=== PATIENT | male | born 1975 | race Caucasian/White ===

== ENCOUNTER → 2019-04-25 14:26 | Outpatient (BNVA) | payer MEDICAID, SELFPAY | PROVIDERS: Family Provider Nurse Practitioner Family; PCP Nurse Practitioner Family; Visit Provider Anesthesiology | DX: M54.5 Low back pain (principal); M25.50 Pain in unspecified joint | CPT/HCPCS: 99213; 99214 ==

== ENCOUNTER → 2019-06-17 14:40 | Outpatient (BNVA) | payer MEDICAID, SELFPAY | PROVIDERS: Family Provider Nurse Practitioner Family; PCP Nurse Practitioner Family; Visit Provider Podiatrist Foot & Ankle Surgery | DX: M79.671 Pain in right foot (principal) | CPT/HCPCS: 73620 ==

== ENCOUNTER 2019-06-18 14:39 | Outpatient (CLI) | payer MEDICAID, SELFPAY | END 2019-06-18 14:40 | disposition home or self-care (01) | LOC: RADWPI 06-20 10:10 | PROVIDERS: Family Provider Nurse Practitioner Family; PCP Nurse Practitioner Family; Visit Provider Anesthesiology | DX: G89.29 Other chronic pain (principal); M48.061 Spinal stenosis, lumbar region without neurogenic claudication; M54.16 Radiculopathy, lumbar region; M48.00 Spinal stenosis, site unspecified; M54.6 Pain in thoracic spine; M89.29 Other disorders of bone development and growth, multiple sites | CPT/HCPCS: 99213; 99214 ==

== ENCOUNTER 2019-07-03 14:36 | Outpatient (CLI) | payer MEDICAID, SELFPAY ==
--- NOTE | 2019-07-03 14:38 | MR_ITS ---
WS: [id number] MRI THORACIC SPINE noncontrast HISTORY: SPINE PAIN COMPARISON: 12/14/2018 TECHNIQUE: Multiplanar sequences are performed in sagittal and axial planes. Normal posterior alignment. Mild disc space narrowing and desiccation at several levels throughout th e thoracic spine. No cord enlargement or atrophy. Conus tapers normally ends at L1. Minimal reactive marrow edema along the inferior endplate of T12. No fractures. T1-2: Mild LEFT foraminal narrowing. T2-3: Mild LEFT foraminal narrowing. T3-4: LEFT foraminal disc protrusion similar to the prior study. Mild narrowing of the LEFT foramen. Mild mass effect upon the LEFT lateral thecal sac. No cord contact. T4-5: Normal. T5-6: Mild facet arthritis. Very slight disc bulging. No cord contact or stenosis. T6-7: Mild facet arthritis. Mild bilateral foraminal narrowing. T7-8: Mild facet arthritis. Mild foraminal narrowing. T8-9: Mild facet joint arthritis, RIGHT greater than LEFT. Mild RIGHT foraminal stenosis. Similar to the prior study. T9-10: Facet joint arthritis with mild bilateral foraminal narrowing, RIGHT greater than LEFT. T10-11: Asymmetric disc bulging with marked facet joint arthropathy. Ligamentum flavum hypertrophy a nd facet arthropathy encroaching upon the posterior lateral thecal sac. Mild central with moderate bi lateral foraminal stenosis. Mild progression of stenosis since the prior study. T11-12: Mild bilateral foraminal narrowing. Osteophyte from the LEFT facet encroaches into the LEFT foramen. Moderate stenosis LEFT foramen and mild on the RIGHT. Paraspinal soft tissues are normal. MR/MR thoracic spin wo con* [id number] IMPRESSION: 1. No severe central canal stenosis. 2. Mild progression of degenerative disc and facet disease at T10-11 since the prior study. Moderate bilateral foraminal stenosis, LEFT greater than RIGHT. 3. Moderate LEFT foraminal stenosis at T11-12 due to mild progression of facet arthritis. Additional LEFT foraminal osteophyte. 4. Additional multilevel areas of mild to moderate foraminal stenosis as above .
--- NOTE | 2019-07-03 14:39 | MR_ITS ---
WS: [id number] MRI LUMBAR SPINE NONCONTRAST HISTORY: PAIN COMPARISON: 09/13/2018 TECHNIQUE: Sagittal and axial multisequence imaging is submitted. 2 mm retrolisthesis of L3. Mild disc desiccation at L2-3 and L3-4. No fractures or marrow edema. Conus terminates normally at mid L1. L1-L2: Normal. L2-L3: Diffuse annular disc bulging with a broad annular fissure centrally. Mild effacement of the ve ntral thecal sac with mild subarticular recess and foraminal stenosis. Mild progression of stenosis s freedom the prior study. L3-L4: Diffuse annular disc bulging with mild ligamentum flavum hypertrophy. Small amount of fluid in the facet joints. Mild central, subarticular recess and foraminal stenosis. L4-L5: Diffuse annular disc bulging with mild ligamentum flavum hypertrophy. Shallow central disc pro trusion. Mild central, subarticular recess and foraminal stenosis. L5-S1: Broad-based annular fissure centrally. No significant stenosis. Paraspinal soft tissues are negative. MR/MR lumbar spine wo con* [id number] IMPRESSION: 1. Mild central, subarticular recess and foraminal stenosis at L2-3, L3-4 and L4-5. Minimal progression since 09/13/2018. Suspect component of congenitally sm all thecal sac and short pedicles. 2. Annular fissure centrally at L2-3 and L5-S1.
== END 2019-07-03 14:37 | disposition home or self-care (01) ==
LOC: RADWPI 14:37
PROVIDERS: Family Provider Nurse Practitioner Family; PCP Nurse Practitioner Family; Visit Provider Anesthesiology
DX: G89.29 Other chronic pain (principal); M48.061 Spinal stenosis, lumbar region without neurogenic claudication; Q05.7 Lumbar spina bifida without hydrocephalus; M51.34 Other intervertebral disc degeneration, thoracic region; M48.04 Spinal stenosis, thoracic region; M25.78 Osteophyte, vertebrae
CPT/HCPCS: 72146; 72148

== ENCOUNTER 2019-08-23 14:36 | Outpatient (CLI) | payer MEDICAID, SELFPAY ==
--- NOTE | 2019-08-23 14:44 | XR_ITS ---
WS: [id number] CERVICAL SPINE FLEXION EXTENSION TECHNIQUE: 3 views of the cervical spine: lateral neutral, flexion and extension views. CLINICAL INFORMATION: cervical pain COMPARISON: August 15, 2018 FINDINGS: Straightening of the normal cervical lordosis. Normal alignment on the neutral view. Mild spondylitic changes cervical spine. Disc space narrowing worse at C5-C7 with anterior hypertrophic spurring. Nor mal C1-2 articulation. Posterior elements are normal. No other significant findings. XR/XR cervical spine fl/ex [id number] IMPRESSION: No instability on flexion-extension
--- NOTE | 2019-08-23 14:44 | MR_ITS ---
WS: [id number] MRI CERVICAL SPINE NONCONTRAST TECHNIQUE: Sagittal T1, T2 and STIR imaging. Axial T2, gradient, and fiesta imaging. CLINICAL INFORMATION: cervical pain COMPARISON: MRI August 15, 2018 FINDINGS: Straightening of the normal cervical lordosis. Mild disc bulging worse at C5-C6. Cord signal is shwetha l. C2-C3: Normal. C3-C4: Mild disc bulging with osteophytic ridging. Tiny right pericentral protrusion. Mild facet arth ropathy. Mild left greater than right foraminal narrowing. C4-C5: Mild disc bulging and osteophytic ridging. Mild central canal stenosis. Mild left greater than right bony foraminal narrowing. Mild facet arthropathy. C5-C6: Disc osteophyte complex with endplate ridging. Mild to moderate central canal stenosis and sli ght indentation on cervical cord. Moderate bilateral bony foraminal narrowing. Mild facet arthropathy . C6-C7: Mild disc bulging and osteophytic ridging. Mild central canal stenosis. Moderate to severe lef t and moderate right bony foraminal narrowing. Mild facet arthropathy. Mild central canal stenosis. C7-T1: Bilobed central disc protrusion with mild central canal stenosis. Mild bilateral bony foramina l narrowing. Visualized brain stem structures: Normal. Prevertebral soft tissues: Normal. MR/MR cervical spin wo con* [id number] IMPRESSION: 1. Straightening of the normal cervical lordosis. Cord signal is normal. 2. Mild to moderate central canal stenosis C4-C5, C5-C6, and C6-C7 worse at C5 -C6 where it is moderate. 3. Multilevel bony foraminal narrowing worse at bilateral C5-C6 and bilateral C6-7 worse in the left 4. No significant interval changes since August 15, 2018.
== END 2019-08-23 14:37 | disposition home or self-care (01) ==
LOC: RADWPI 14:39
PROVIDERS: Family Provider Nurse Practitioner Family; PCP Nurse Practitioner Family; Visit Provider Specialist
DX: M54.2 Cervicalgia (principal); M48.02 Spinal stenosis, cervical region
CPT/HCPCS: 72040; 72141

== ENCOUNTER → 2019-09-05 14:30 | Outpatient (BNVA) | payer MEDICAID, SELFPAY | PROVIDERS: Family Provider Nurse Practitioner Family; PCP Nurse Practitioner Family; Visit Provider Anesthesiology | DX: G89.29 Other chronic pain (principal); M48.061 Spinal stenosis, lumbar region without neurogenic claudication; M54.16 Radiculopathy, lumbar region; M54.6 Pain in thoracic spine; M54.9 Dorsalgia, unspecified; M50.020 Cervical disc disorder with myelopathy, mid-cervical region, unspecified level; M48.00 Spinal stenosis, site unspecified; Z79.891 Long term (current) use of opiate analgesic | CPT/HCPCS: 99214 ==

== ENCOUNTER → 2019-09-23 14:52 | Outpatient (BNVA) | payer MEDICAID, SELFPAY | PROVIDERS: Family Provider Nurse Practitioner Family; PCP Nurse Practitioner Family; Referring Provider Orthopaedic Surgery; Visit Provider Specialist | DX: M25.562 Pain in left knee (principal); M25.561 Pain in right knee; G89.29 Other chronic pain | CPT/HCPCS: 73560; 73565 ==

== ENCOUNTER 2019-09-24 14:53 | Emergency (ER) | payer MEDICAID, SELFPAY ==
[2019-09-24 15:12] VITALS: BP 137/76; PULSE 66; RESP 14; TEMP 36.6; O2SAT 99; BMI 21.3
--- NOTE | 2019-09-24 16:00 | ED_ITS ---
Documented by User: HERACLIO Beck 09/25/19 17:29 HPI - Back Pain/Injury General: Chief Complaint: Back Pain/Injury Stated Complaint: back pain Time Seen by Provider: 09/24/19 16:00 History of Present Illness: HPI Narrative: Patient is a 44-year-old male comes the ED with acute on chronic lower back pain. 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 He is having pain radiating down his right lower extremity. Patient says about 4 to 5 days ago he had an acute attack of lower back pain and he was unable to move much for about 3 days. He has been taking oxycodone to manage pain. He talked to Dr. Pickett and he told him to come to the ED to get an MRI today. Patient denies any numbness or tingling down lower extremities and has no bladder or bowel incontinence or pelvic anesthesia. Associated symptoms: Deny abdominal pain, chills, dysuria, fatigue, fever(s), hematuria, nausea or vomiting Review of Systems Const: Denies: fever(s), chills or fatigue Eyes: Denies: change in vision or eye discomfort ENMT: Denies: throat pain, odynophagia, nasal discharge or nasal congestion Card: Denies: chest pain, palpitations, edema, swelling of feet/ankles, dyspnea on exertion or orthopnea Resp: Denies: dyspnea, productive cough or non-productive cough GI: Denies: abdominal pain, nausea, vomiting, diarrhea, constipation or hematochezia : Denies: flank pain, difficulty urinating, dysuria or hematuria Musc: Reports: back pain; Denies: neck pain or extremity swelling Skin/Breast: Denies: rash or new lesions Neuro: Denies: headache(s), numbness in extremities or weakness in extremities PFS ED PFSH: Medical History Acquired bilateral hammer toes Acute midline thoracic back pain ADHD Arthritis of right acromioclavicular joint Atrial premature beats Beat, premature ventricular Blind right eye Bunion of right foot Cervical disc disorder with myelopathy of mid-cervical region Cervical disc disorder with radiculopathy of mid-cervical region Cervical radicular pain Cervical spinal stenosis Chondromalacia Chondromalacia of patella Chronic fatigue, unspecified Chronic GERD Chronic pain associated with significant psychosocial dysfunction Chronic thoracic back pain Common migraine with intractable migraine, so stated Diplopia Dorsalgia, unspecified Encounter for long-term use of opiate analgesic Exostosis of foot Fibromyalgia, primary Generalized anxiety disorder Hyperlipidemia, unspecified Impingement syndrome of right shoulder Incomplete rotator cuff tear Insomnia, unspecified Male erectile dysfunction, unspecified 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 Peroneal tendinitis of multiple sites Spinal stenosis of lumbar region with radiculopathy Spinal stenosis, site unspecified Surgical History History of nasal surgery Family History Father Cancer Mother Cancer Lung disease Social History Smoking and tobacco status: never smoked Second hand smoke exposure: No Alcohol intake: never Current occupational status: employed 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 History of recent travel: No Physical Exam Const: COMMON NORMALS: no acute distress, patient oriented x3 and alert GENERAL APPEARANCE: cooperative HENMT: COMMON NORMALS: normocephalic HEAD & SCALP: normocephalic MOUTH: Normal oral and palatal mucosa present THROAT: posterior oropharynx normal and uvula midline Eye: COMMON NORMALS: Equal, round and reactive pupils present PUPIL: Yes Equal, round and reactive pupils present Neck/C-Spine: COMMON NORMALS: supple GENERAL: Yes normal visual inspection Resp: COMMON NORMALS: normal respiratory effort, No retractions, No use of accessory muscles and clear to auscultation bilaterally AUSCULTATION: clear to auscultation bilaterally Cardio: COMMON NORMALS: regular rate, regular rhythm, S1 normal heart sound present, S2 normal heart sound present, No gallops present (Cardio), No clicks present (Cardio), No murmurs present (Cardio) and Peripheral pulses 2+ throughout RATE: regular rate RHYTHM: regular rhythm HEART SOUNDS: S1 normal heart sound present and S2 normal heart sound present PERIPHERAL PULSES: Peripheral pulses 2+ throughout GI: COMMON NORMALS: Normal to inspection, nondistended, normoactive bowel sounds present, Soft to palpation, non-tender and no masses PALPATION: Yes Soft to palpation : COMMON NORMALS: Yes no CVA tenderness BLADDER/KIDNEY EXAM: Yes no CVA tenderness Back/Pelvis: COMMON NORMALS: no CVA tenderness LUMBAR SPINE/LOWER BACK: Yes ROM limited, Yes pain with ROM, Yes lumbar spinal tenderness, Yes paraspinal muscle tenderness and Yes straight leg raise positive right Extremity: COMMON NORMALS: normal to inspection and no pedal edema Neuro: COMMON NORMALS: patient oriented x3, moves all extremities, no focal motor deficits and no sensory deficits noted SENSORIUM/ORIENTATION: Yes alert SENSORY EXAM: Yes extremities (intact) Skin: COMMON NORMALS: no rashes or lesions noted GENERAL SKIN EXAM: no rashes or lesions noted and dry skin Course Vital Signs: Vital signs: Vital Signs Temperature 97.8 F 09/24/19 15:12 Pulse Rate 76 09/24/19 20:22 Respiratory Rate 14 09/24/19 20:22 Blood Pressure 111/68 09/24/19 20:22 Pulse Oximetry 96 09/24/19 20:22 Discharge Plan Discharge Patient Disposition: Home, Self-Care Clinical Impression: Back pain with radiation Condition: Stable Prescriptions: New prednisone 20 mg tablet 20 mg PO DAILY 11 Days Qty: 11 RF: 0 No Action Motegrity 2 mg tablet 2 mg PO BID RF: 0 diazepam [Valium] 10 mg tablet 10 mg PO BEDTIME PRN (Reason: unknown) RF: 0 cyclobenzaprine 10 mg PO TID PRN (Reason: unknown) RF: 0 oxycodone 10 mg tablet 10 mg PO TID PRN (Reason: pain) 30 Days Qty: 90 RF: 0 Medrol (Bernardino) 4 mg Tablets,Dose Pack See Rx Instructions .ROUTE .COMPLEX RF: 0 Food Based Organic Multivit See Rx Instructions .ROUTE .COMPLEX RF: 0 trazodone 50 mg tablet 50 mg PO BEDTIME RF: 0 ibuprofen 800 mg Tablet 800 mg PO Q8H PRN (Reason: Pain) RF: 0 lidocaine-prilocaine 2.5-2.5 % cream See Rx Instructions .ROUTE .COMPLEX RF: 0 hydrocortisone 2.5 % cream 1 applic TOPICAL BID PRN (Reason: UNKNOWN) RF: 0 fish oil-dha-epa 1,200-144-216 mg Capsule See Rx Instructions .ROUTE .COMPLEX RF: 0 Lotemax 0.5 % drops,gel 1 drp ophthalmic (eye) BEDTIME PRN (Reason: UNKNOWN) RF: 0 Dim Tabs 200 mg PO DAILY RF: 0 Eye Vitamins 3 tab PO DAILY RF: 0 Vitamin K With D3 1 tab PO DAILY RF: 0 Referrals: Kayla Quan FNP [Primary Care Provider] - Discharge Diet: Advance as tolerated Discharge Activity: Increase activity as tolerated Patient Instructions: Lumbar Radiculopathy (ED) Activity Restrictions/Additional Instructions: Follow-up with medical provider as directed. Take medications as prescribed. Return to the ER or your medical provider if condition worsens. Please read and understand discharge instructions. If any questions ask please. Discharge Date/Time: 09/24/19 20:24 Coding Level of Care Code ED Software Support Representative for Chg Fwd Exam Comprehensive Documented by User: KIRTI Swan 09/24/19 21:00 HPI - Back Pain/Injury General: Chief Complaint: Back Pain/Injury Stated Complaint: back pain Time Seen by Provider: 09/24/19 16:00 PFSH ED PFSH: Medical History Acquired bilateral hammer toes Acute midline thoracic back pain ADHD Arthritis of right acromioclavicular joint Atrial premature beats Beat, premature ventricular Blind right eye Bunion of right foot Cervical disc disorder with myelopathy of mid-cervical region Cervical disc disorder with radiculopathy of mid-cervical region Cervical radicular pain Cervical spinal stenosis Chondromalacia Chondromalacia of patella Chronic fatigue, unspecified Chronic GERD Chronic pain associated with significant psychosocial dysfunction Chronic thoracic back pain Common migraine with intractable migraine, so stated Diplopia Dorsalgia, unspecified Encounter for long-term use of opiate analgesic Exostosis of foot Fibromyalgia, primary Generalized anxiety disorder Hyperlipidemia, unspecified Impingement syndrome of right shoulder Incomplete rotator cuff tear Insomnia, unspecified Male erectile dysfunction, unspecified 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 Peroneal tendinitis of multiple sites Spinal stenosis of lumbar region with radiculopathy Spinal stenosis, site unspecified Surgical History History of nasal surgery Family History Father Cancer Mother Cancer Lung disease Social History Smoking and tobacco status: never smoked Second hand smoke exposure: No Alcohol intake: never Current occupational status: employed 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 Pickett read him the MRI report he has not we have the patient follow-up with him contact his office in the morning. Discussed case and MRI results with patient and his Discharge Plan Discharge Patient Disposition: Home, Self-Care Clinical Impression: Back pain with radiation Condition: Stable Prescriptions: New prednisone 20 mg tablet 20 mg PO DAILY 11 Days Qty: 11 RF: 0 No Action Motegrity 2 mg tablet 2 mg PO BID RF: 0 diazepam [Valium] 10 mg tablet 10 mg PO BEDTIME PRN (Reason: unknown) RF: 0 cyclobenzaprine 10 mg PO TID PRN (Reason: unknown) RF: 0 oxycodone 10 mg tablet 10 mg PO TID PRN (Reason: pain) 30 Days Qty: 90 RF: 0 Medrol (Bernardino) 4 mg Tablets,Dose Pack See Rx Instructions .ROUTE .COMPLEX RF: 0 Food Based Organic Multivit See Rx Instructions .ROUTE .COMPLEX RF: 0 trazodone 50 mg tablet 50 mg PO BEDTIME RF: 0 ibuprofen 800 mg Tablet 800 mg PO Q8H PRN (Reason: Pain) RF: 0 lidocaine-prilocaine 2.5-2.5 % cream See Rx Instructions .ROUTE .COMPLEX RF: 0 hydrocortisone 2.5 % cream 1 applic TOPICAL BID PRN (Reason: UNKNOWN) RF: 0 fish oil-dha-epa 1,200-144-216 mg Capsule See Rx Instructions .ROUTE .COMPLEX RF: 0 Lotemax 0.5 % drops,gel 1 drp ophthalmic (eye) BEDTIME PRN (Reason: UNKNOWN) RF: 0 Dim Tabs 200 mg PO DAILY RF: 0 Eye Vitamins 3 tab PO DAILY RF: 0 Vitamin K With D3 1 tab PO DAILY RF: 0 Referrals: Kayla Quan FNP [Primary Care Provider] - Discharge Diet: Advance as tolerated Discharge Activity: Increase activity as tolerated Patient Instructions: Lumbar Radiculopathy (ED) Activity Restrictions/Additional Instructions: Follow-up with medical provider as directed. Take medications as prescribed. Return to the ER or your medical provider if condition worsens. Please read and understand discharge instructions. If any questions ask please. Discharge Date/Time: 09/24/19 20:24 Coding Level of Care Code ED Software Support Representative for Kelsey Fwd Exam Comprehensive
--- NOTE | 2019-09-24 16:37 | MRR_ITS ---
PROCEDURE INFORMATION: Exam: MR Lumbar Spine Without Contrast. Exam date and time: 09/24/2019 6:00 PM Age: 44 years old Clinical indication: Low back pain; Additional info: Spinal stenosis, back pain TECHNIQUE: Imaging protocol: Multiplanar magnetic resonance images of the lumbar spine without intravenous contrast. COMPARISON: MR lumbar spine wo con* [id number] 07/03/2019 2:54 PM FINDINGS: Vertebrae: Vertebral body height is maintained. No subluxation. Schmorl's nodes at multiple levels in the spine. Small marginal osteophytes at multiple levels in the spine. No evidence for ligamentous injury. No bone marrow edema. The sagittal streaming media specialist image shows small posterior disc bulges at C2-C3 through C5-C6, C7-T1, T2-3 through T5-6, and T9-10. Small marginal osteophytes are also seen at multiple levels in the cervical spine. Increased T2 signal in the posterior midline L2-L3 disc is less apparent compared with the previous study. Stable increased T2 signal in the posterior midline annulus fibrosus at the L5-S1 disc. Findings suggest annular fissures. Spinal epidural space: No evidence for an epidural hematoma. Spinal cord: No signal abnormality in the visualized spinal cord, conus medullaris, or cauda equina. Spinal cord terminates at the L1 vertebral body level. T10-T11: The sagittal image shows a small posterior disc bulge and mild bilateral facet hypertrophy. Findings are stable. T11-T12: The sagittal image shows a posterior disc bulge and mild bilateral facet hypertrophy. Findings are stable. T12-L1: Sagittal image shows mild bilateral facet hypertrophy. Findings are stable. L1-L2: Mild bilateral facet hypertrophy. Moderate ligamentum flavum thickening. Findings are stable. L2-L3: Moderate broadbased posterior disc bulge. Mild bilateral facet hypertrophy. Moderate ligamentum flavum thickening. [id number] spinal canal stenosis. Mild bilateral foraminal stenosis. Findings are stable. L3-L4: Small broadbased posterior disc bulge. Mild bilateral facet hypertrophy. Moderate ligamentum flavum thickening. Mild spinal canal stenosis. Mild bilateral foraminal stenosis. Findings are stable. L4-L5: Mild bilateral facet hypertrophy. Mild ligamentum flavum thickening. Mild bilateral foraminal stenosis. Findings are stable. L5-S1: Small focal central disc herniation. Mild bilateral facet hypertrophy. Mild ligamentum flavum thickening. Findings are stable. Soft tissues: No paravertebral soft tissue abnormality. MR/MR lumbar spine wo con* [id number] IMPRESSION: 1. Stable multilevel degenerative disc disease and degenerative joint disease as described in the report. Stable mild to moderate spinal canal stenosis at L2-L3 and mild spinal canal stenosis at L3-L4. Stable multilevel foraminal stenosis in the lumbar spine. 2. Findings suggesting annular fissures at the posterior midline L2-L3 and L5-S1 discs. Findings are less apparent and L2-L3 but are stable at L5-S1. 3. Incidental/nonacute findings are listed in the report.
[2019-09-24 17:40] VITALS: RESP 16
[2019-09-24] MEDS: oxyCODONE-APAP 10-325 mg Tablet 1 TAB PO (17:40)
--- NOTE | 2019-09-24 18:18 | PC.NURSE ---
patient taken to MRI via em[facility]
--- NOTE | 2019-09-24 18:49 | PC.NURSE ---
patient returned from lmri, patiesnt tolerated well
[2019-09-24 19:05] VITALS: BP 111/68; PULSE 76; RESP 18; O2SAT 96
--- NOTE | 2019-09-24 19:12 | PC.NURSE ---
during pt rounds, pt requesting to hold off on pain meds, requesting something to eat. Per GOLF PLAYER ASSISTANT, hold off on full meal, ok for snack until rad report read. Jaylene tellom crackers provided to pt
[2019-09-24] MEDS: predniSONE 20 mg Tablet 60 MG PO (20:04)
[2019-09-24 20:22] VITALS: BP 111/68; PULSE 76; RESP 14; O2SAT 96
== END 2019-09-24 20:24 | disposition home or self-care (01) ==
PROVIDERS: Emergency Provider Nurse Practitioner Family; PCP Nurse Practitioner Family
DX: M54.9 Dorsalgia, unspecified (principal); E78.5 Hyperlipidemia, unspecified
CPT/HCPCS: 12345; 72148; 99282; 99283; J7512

== ENCOUNTER → 2019-09-25 13:07 | Outpatient (BNVA) | payer MEDICAID, SELFPAY | PROVIDERS: Family Provider Nurse Practitioner Family; PCP Nurse Practitioner Family; Visit Provider Anesthesiology | DX: G89.29 Other chronic pain (principal); M54.41 Lumbago with sciatica, right side; M54.42 Lumbago with sciatica, left side; M48.00 Spinal stenosis, site unspecified; M48.061 Spinal stenosis, lumbar region without neurogenic claudication; M54.16 Radiculopathy, lumbar region; M54.6 Pain in thoracic spine; M54.9 Dorsalgia, unspecified; M50.020 Cervical disc disorder with myelopathy, mid-cervical region, unspecified level; Z79.891 Long term (current) use of opiate analgesic | CPT/HCPCS: 99213 ==

== ENCOUNTER → 2019-10-16 10:45 | Outpatient (BNVA) | payer MEDICAID, SELFPAY | PROVIDERS: Family Provider Nurse Practitioner Family; PCP Family Medicine; Visit Provider Anesthesiology | DX: G89.29 Other chronic pain (principal); M54.41 Lumbago with sciatica, right side; M48.061 Spinal stenosis, lumbar region without neurogenic claudication; M54.16 Radiculopathy, lumbar region; M54.6 Pain in thoracic spine; M50.020 Cervical disc disorder with myelopathy, mid-cervical region, unspecified level; M48.00 Spinal stenosis, site unspecified; M54.9 Dorsalgia, unspecified; Z79.891 Long term (current) use of opiate analgesic | CPT/HCPCS: 99214 ==

== ENCOUNTER → 2019-11-14 13:01 | Outpatient (BNVA) | payer MEDICAID, SELFPAY | PROVIDERS: Family Provider Nurse Practitioner Family; PCP Family Medicine; Visit Provider Anesthesiology | DX: G89.29 Other chronic pain (principal); M48.061 Spinal stenosis, lumbar region without neurogenic claudication; M54.16 Radiculopathy, lumbar region; M54.6 Pain in thoracic spine; M50.020 Cervical disc disorder with myelopathy, mid-cervical region, unspecified level; M25.50 Pain in unspecified joint; M54.9 Dorsalgia, unspecified; Z79.891 Long term (current) use of opiate analgesic | CPT/HCPCS: 99214 ==

== ENCOUNTER → 2019-11-19 10:12 | Outpatient (BNVA) | payer MEDICAID, SELFPAY | PROVIDERS: Family Provider Nurse Practitioner Family; PCP Family Medicine; Visit Provider Counselor Professional | DX: F41.1 Generalized anxiety disorder (principal); F42.9 Obsessive-compulsive disorder, unspecified | CPT/HCPCS: 99215 ==

== ENCOUNTER → 2019-11-29 10:34 | Outpatient (BNVA) | payer MEDICAID, SELFPAY | PROVIDERS: Family Provider Nurse Practitioner Family; PCP Family Medicine; Visit Provider Counselor Professional | DX: F41.1 Generalized anxiety disorder (principal); F60.5 Obsessive-compulsive personality disorder | CPT/HCPCS: 90834 ==

== ENCOUNTER 2019-12-01 08:48 | Emergency (ER) | payer MEDICAID, SELFPAY ==
[2019-12-01 08:53] VITALS: BP 127/81; PULSE 70; RESP 18; TEMP 37.1; O2SAT 99
--- NOTE | 2019-12-01 09:04 | W.ED.NEUROSD ---
HPI - Neuro Symptoms/Deficit General: Chief Complaint: Neuro Symptoms/Deficit Stated Complaint: SENT BY DR MEHDI ANNA FOR [facility] EMERGENCY MRI Time Seen by Provider: 12/01/19 08:50 Source: patient Mode of arrival: ambulatory Limitations: no limitations History of Present Illness: HPI Narrative: Jean-Pierre is a nice 44-year-old male who comes in complaining of increased neck pain along with intermittent primarily right upper extremity numbness and weakness. Patient states he has a history of severe degenerative disc disease of his neck. He is scheduled to have surgery by Dr. Anna who is a neurosurgeon out of [facility]. Because the patient symptoms have been progressive he was told he needed to have an emergent MRI by Dr. Anna. Patient states for the past few days he has had intermittent numbness and weakness primarily down his right arm. He states his pain is increased as well. He denies any fever, chills or injection drug use. Associated symptoms: Deny chest pain, diaphoresis, headache(s), malaise, nausea, syncope, vertigo or vomiting Review of Systems Const: Denies: fever(s), chills, body aches, fatigue, malaise or diaphoresis Eyes: Denies: change in vision, blurry vision, photophobia, eye discomfort, eye discharge or eye redness ENMT: Denies: throat pain, odynophagia, hoarseness, swelling of lips/tongue, ear or mastoid pain, ear discharge, change in hearing or nasal discharge Card: Denies: chest pain, palpitations, irregular heart rhythm, edema, lightheadedness, syncope, pre-syncope, dyspnea on exertion or orthopnea Resp: Denies: dyspnea, productive cough, non-productive cough, wheezing, hemoptysis or chest congestion GI: Denies: abdominal pain, nausea, vomiting, hematemesis, coffee ground emesis, heartburn, diarrhea, constipation, GI cramping, hematochezia or melena : Denies: flank pain, dysuria, urinary frequency, urinary urgency or hematuria Musc: Reports: neck pain; Denies: back pain, extremity pain, extremity swelling, joint pain, joint swelling, joint redness, joint warmth or joint stiffness Skin/Breast: Denies: rash, pruritus, erythema or skin tenderness Neuro: Reports: numbness in extremities, weakness in extremities and sensory changes; Denies: headache(s), lack of coordination, difficulty walking, dizziness, vertigo, confusion, Slurred speech present or seizure-like activity Maury/Lymph: Denies: easy bruising, easy bleeding, petechiae, purpura or enlarged lymph nodes All/Imm: Denies: urticaria, throat swelling, tongue swelling, facial swelling or acute wheezing PFSH ED PFSH: Medical History Acquired bilateral hammer toes Acute midline thoracic back pain ADHD Arthritis of right acromioclavicular joint Atrial premature beats Beat, premature ventricular Blind right eye Bunion of right foot Cervical disc disorder with myelopathy of mid-cervical region Cervical disc disorder with radiculopathy of mid-cervical region Cervical radicular pain Cervical spinal stenosis Chondromalacia Chondromalacia of patella Chronic fatigue, unspecified Chronic GERD Chronic pain associated with significant psychosocial dysfunction Chronic thoracic back pain Common migraine with intractable migraine, so stated Diplopia Dorsalgia, unspecified Encounter for long-term use of opiate analgesic Exostosis of foot Fibromyalgia, primary Generalized anxiety disorder Hyperlipidemia, unspecified Impingement syndrome of right shoulder Incomplete rotator cuff tear Insomnia, unspecified Male erectile dysfunction, unspecified 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 Peroneal tendinitis of multiple sites Spinal stenosis of lumbar region with radiculopathy Spinal stenosis, site unspecified Surgical History History of nasal surgery Family History Father Cancer Mother Cancer Lung disease Social History Smoking and tobacco status: never smoked Second hand smoke exposure: No Alcohol intake: never Current occupational status: employed 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 History of recent travel: No Physical Exam Const: COMMON NORMALS: no acute distress, patient oriented x3, no limitations, healthy appearing and well nourished GENERAL APPEARANCE: cooperative, well kempt and well developed HENMT: COMMON NORMALS: normocephalic, atraumatic, external ears normal, EAC's normal and Normal external nose present HEAD & SCALP: normal to inspection, normocephalic and atraumatic FACE & SINUS: normal facial exam and face symmetric NOSE: Normal external nose present and Normal nares present EXTERNAL EAR: Yes external ears normal EXTERNAL AUDITORY CANAL: EAC's normal MOUTH: Normal oral and palatal mucosa present, lip normal and tongue normal Eye: COMMON NORMALS: Equal, round and reactive pupils present and conjunctivae normal GENERAL EYE: appearance normal, both eyes and all related structures ALIGNMENT: Yes alignment normal PERIORBITAL: periorbital findings normal EYELID: eyelids normal CONJUNCTIVA: Yes conjunctivae normal SCLERA: sclerae normal PUPIL: Yes Equal, round and reactive pupils present Neck/C-Spine: COMMON NORMALS: full ROM, no lymphadenopathy, supple, no meningeal signs and no JVD GENERAL: Yes normal visual inspection and Yes trachea midline Chest: COMMONS NORMALS: normal inspection of the chest and normal palpation of entire chest wall Resp: COMMON NORMALS: normal respiratory effort, No retractions, No use of accessory muscles and clear to auscultation bilaterally EFFORT & INSPECTION: Yes able to speak in complete sentences and Yes symmetric chest movement AUSCULTATION: clear to auscultation bilaterally, no crackles, no rales, no rhonchi and no wheezes Cardio: COMMON NORMALS: no JVD, regular rate, regular rhythm, S1 normal heart sound present and S2 normal heart sound present RATE: regular rate RHYTHM: regular rhythm HEART SOUNDS: S1 normal heart sound present, S2 normal heart sound present, no click, no gallops, no murmurs, no rubs and abnormal split S2 GI: COMMON NORMALS: Soft to palpation and No hepatosplenomegaly present PALPATION: Yes Soft to palpation, No Tenderness to palpation present (GI), No Guarding due to palpation present (GI), No Rigid due to palpation, Yes No hepatosplenomegaly present, No Hernia present, No Palpable mass present and No Pulsatile mass present : COMMON NORMALS: Yes no CVA tenderness BLADDER/KIDNEY EXAM: Yes no CVA tenderness Back/Pelvis: COMMON NORMALS: no CVA tenderness, thoracic and lumbar spine normal to inspection, no thoracic nor lumbar tenderness and thoraco-lumbar ROM normal Extremity: COMMON NORMALS: normal to inspection, full ROM, capillary refill normal, no joint enlargement, no clubbing, cyanosis or edema and no calf tenderness Neuro: COMMON NORMALS: patient oriented x3, CN's II-XII intact bilaterally, moves all extremities, no focal motor deficits, no sensory deficits noted and deep tendon reflexes 2+ bilaterally MENINGEAL SIGNS: Yes no meningeal signs SPEECH: speech normal Psych: COMMON NORMALS: mental status grossly normal, Normal thought process present, cooperative, normal affect, speech normal and activity/motor behavior normal APPEARANCE: Yes well kempt SPEECH: Yes normal speech THOUGHT PROCESS: Normal thought process present Skin: COMMON NORMALS: no rashes or lesions noted, turgor normal, no jaundice, no petechiae and no mottling GENERAL SKIN EXAM: no rashes or lesions noted and turgor normal Course ED course: 934 -the case was reviewed with Dr. Trinh, Neurosurgeon, clinical documentation consultant for Dr. Anna the patient's primary neurosurgeon. At this time he does recommend the patient have a repeat MRI if he is presenting with progressive symptoms. 946 -patient is refusing all lab work, IV or any investigation other than the MRI. Vital Signs: Vital signs: Vital Signs Temperature 98.8 F 12/01/19 08:53 Pulse Rate 69 12/01/19 11:53 Respiratory Rate 18 12/01/19 11:53 Blood Pressure 110/69 12/01/19 11:53 Pulse Oximetry 98 12/01/19 11:53 MDM - Neuro Symptoms/Deficit MDM Narrative: Medical decision making narrative: Arrival -Mr. Maldonado is a 44-year-old male who comes in insisting upon a MRI of his cervical spine. He has a history of degenerative disc disease that faustino been worse recently as far as his symptoms go. Differentials considerable including cord compressive syndrome, acute herniated disc, epidural abscess, transverse myelitis among many others. Patient here has no objective muscle weakness or numbness. I will attempt discussed the case with his primary neurosurgeon and review old records as he has been seen here previously for similar symptoms. Discharge -the MRI report was reviewed with Dr. Trinh. He agrees there is nothing of concern other than degenerative changes based upon this MRI. He believes the patient can continue his medicine regimen and follow-up with Dr. Anna as scheduled. The patient is reassured to hear this. Please see his last note by Dr. Brooks from 11/19/2019 for her interpretation of the patient's symptoms. Ultimately the patient never described nor demonstrated any ocular weakness or loss of sensation here. I will discharge patient home to follow-up as directed. Medical Records: Attestation: I reviewed the patient's medical records. Medical records narrative: Office visit note by Dr. Brooks from 11/19/2019 reviewed. Please see those note for details. Office note by Dr. Pickett on 09/04/2019 also reviewed, please see this note for details. Imaging Data^: MRI Cervical Spine: Radiologist's impression: [address] [place] [address] Magnetic Resonance Report Signed Patient: Jean-Pierre Maldonado Unit #: [id number] : 1975 Age/Sex: 44 / M ADM Date: 12/01/19 Loc: ER Room/Bed: Attending Dr: Ordering Provider/Ordering MD: Sabrina Arenas DO Date of Service: 12/01/19 Procedure(s): MR cervical spin wo con* [id number] Accession Number(s): [id number] Report Number: [id number] PROCEDURE INFORMATION: Exam: MR Cervical Spine Without Contrast Exam date and time: 12/01/2019 10:00 AM Age: 44 years old Clinical indication: Weakness; Patient HX: Patient arms shaking, fingers are drawn tight. PT mentioned that he has lesions on the brain and that it could be attacking his spine. ; Additional info: Arm weakness/numbness TECHNIQUE: Imaging protocol: Multiplanar magnetic resonance images of the cervical spine without contrast. COMPARISON: MR cervical spin wo con* [id number] 08/23/2019 2:34 PM FINDINGS: Vertebrae: There is straightening of the normal cervical lordosis. There is no fracture or listhesis. Spinal cord: Normal signal. No cord compression. C2-C3: There is a shallow disc osteophyte complex. There is mild facet hypertrophy. There is mild left neural foraminal narrowing. C3-C4: There is a diffuse disc osteophyte complex. There is mild facet hypertrophy. There is mild right and moderate to severe left neural foraminal narrowing. C4-C5: There is a diffuse disc osteophyte complex. There is mild facet hypertrophy. There is moderate right and severe left neural foraminal narrowing. There is mild canal stenosis. C5-C6: There is a diffuse disc osteophyte complex. There is mild facet hypertrophy. There is moderate to severe right and severe left neural foraminal narrowing. There is moderate canal stenosis. C6-C7: There is a diffuse disc osteophyte complex. There is mild facet hypertrophy. There is moderate to severe right and severe left neural foraminal narrowing. C7-T1: There is a diffuse disc osteophyte complex. There is mild facet hypertrophy. There is severe bilateral neural foraminal narrowing. Vertebral arteries: Expected flow voids in the vertebral arteries. Soft tissues: Unremarkable. MR/MR cervical spin wo con* [id number] IMPRESSION: Degenerative disc disease and spondylosis, with multilevel moderate to severe neural foraminal narrowing. Dictated By: Molly Gimenez MD Signed By: Molly Gimenez MD Signed Date/Time: 12/01/19 1201 DD/ 1159 Discharge Plan Discharge Patient Disposition: Home Clinical Impression: Cervical radiculopathy Condition: Stable Prescriptions: No Action oxycodone 10 mg tablet 10 mg PO QID 30 Days Qty: 120 RF: 0 ropinirole 0.5 mg tablet 0.5 mg PO DAILY 30 Days Qty: 30 RF: 1 oxycodone 10 mg tablet 10 mg PO QID PRN (Reason: pain) 30 Days Qty: 120 RF: 0 Motegrity 2 mg tablet 2 mg PO BID RF: 0 cyclobenzaprine 10 mg PO TID PRN (Reason: unknown) RF: 0 diazepam 10 mg tablet 10 mg PO BID PRNRF: 0 lidocaine-prilocaine 2.5-2.5 % cream See Rx Instructions .ROUTE .COMPLEX RF: 0 fish oil-dha-epa 1,200-144-216 mg Capsule See Rx Instructions .ROUTE .COMPLEX RF: 0 Lotemax 0.5 % drops,gel 1 drp ophthalmic (eye) BEDTIME PRN (Reason: UNKNOWN) RF: 0 Vitamin K With D3 1 tab PO DAILY RF: 0 Discharge Orders: Discharge Order (Routine); Ordered 12/01/19 Ordered By: Sabrina Arenas Referrals: Rubén Cullen [Primary Care Provider] - 1-3 days Discharge Diet: Advance as tolerated Discharge Activity: Limit activity as instructed Patient Instructions: Cervical Radiculopathy (ED) Activity Restrictions/Additional Instructions: Please return to the ER immediately for any of the signs or symptoms listed on your discharge instruction sheets, worsening/changing of your symptoms, you are not getting better as quickly as expected, or for ANY other cause or concerns. Call Dr. Anna's office for an appointment to be seen for reevaluation and care. Return to the ER for arm numbness, arm weakness, leg numbness or weakness or for any other cause for concern. Coding Level of Care Code ED [employer] for [employer] Fwd Exam Comprehensive
[2019-12-01 09:06] VITALS: BP 148/82; PULSE 85; RESP 20; O2SAT 100
--- NOTE | 2019-12-01 09:20 | MRR_ITS ---
PROCEDURE INFORMATION: Exam: MR Cervical Spine Without Contrast Exam date and time: 12/01/2019 10:00 AM Age: 44 years old Clinical indication: Weakness; Patient HX: Patient arms shaking, fingers are drawn tight. PT mentioned that he has lesions on the brain and that it could be attacking his spine. ; Additional info: Arm weakness/numbness TECHNIQUE: Imaging protocol: Multiplanar magnetic resonance images of the cervical spine without contrast. COMPARISON: MR cervical spin wo con* [id number] 08/23/2019 2:34 PM FINDINGS: Vertebrae: There is straightening of the normal cervical lordosis. There is no fracture or listhesis. Spinal cord: Normal signal. No cord compression. C2-C3: There is a shallow disc osteophyte complex. There is mild facet hypertrophy. There is mild left neural foraminal narrowing. C3-C4: There is a diffuse disc osteophyte complex. There is mild facet hypertrophy. There is mild right and moderate to severe left neural foraminal narrowing. C4-C5: There is a diffuse disc osteophyte complex. There is mild facet hypertrophy. There is moderate right and severe left neural foraminal narrowing. There is mild canal stenosis. C5-C6: There is a diffuse disc osteophyte complex. There is mild facet hypertrophy. There is moderate to severe right and severe left neural foraminal narrowing. There is moderate canal stenosis. C6-C7: There is a diffuse disc osteophyte complex. There is mild facet hypertrophy. There is moderate to severe right and severe left neural foraminal narrowing. C7-T1: There is a diffuse disc osteophyte complex. There is mild facet hypertrophy. There is severe bilateral neural foraminal narrowing. Vertebral arteries: Expected flow voids in the vertebral arteries. Soft tissues: Unremarkable. MR/MR cervical spin wo con* [id number] IMPRESSION: Degenerative disc disease and spondylosis, with multilevel moderate to severe neural foraminal narrowing.
[2019-12-01 09:43] VITALS: BP 129/64; PULSE 88; RESP 20; O2SAT 99
[2019-12-01 10:03] VITALS: BP 113/66; PULSE 69; RESP 20; O2SAT 97
--- NOTE | 2019-12-01 10:37 | PC.NURSE ---
Wyatt Pagan here to take pt [facility] for MRI.
[2019-12-01 11:53] VITALS: BP 110/69; PULSE 69; RESP 18; O2SAT 98
[2019-12-01 12:24] VITALS: BP 115/72; PULSE 69; RESP 18; TEMP 37; O2SAT 98
== END 2019-12-01 12:29 | disposition home or self-care (01) ==
PROVIDERS: Emergency Provider Emergency Medicine; PCP Family Medicine
DX: M54.12 Radiculopathy, cervical region (principal); E78.5 Hyperlipidemia, unspecified
CPT/HCPCS: 12345; 72141; 99281; 99282

== ENCOUNTER → 2020-01-21 09:04 | Outpatient (BNVA) | payer MEDICAID, SELFPAY | PROVIDERS: Family Provider Nurse Practitioner Family; PCP Family Medicine; Visit Provider Anesthesiology | DX: G89.29 Other chronic pain (principal); M50.020 Cervical disc disorder with myelopathy, mid-cervical region, unspecified level; M54.6 Pain in thoracic spine; M54.16 Radiculopathy, lumbar region; M48.061 Spinal stenosis, lumbar region without neurogenic claudication; M25.569 Pain in unspecified knee; Z79.891 Long term (current) use of opiate analgesic | CPT/HCPCS: 99214 ==

== ENCOUNTER → 2020-03-12 12:43 | Outpatient (BNVA) | payer MEDICAID, SELFPAY | PROVIDERS: Family Provider Nurse Practitioner Family; PCP Family Medicine; Visit Provider Anesthesiology | DX: G89.29 Other chronic pain (principal); M50.020 Cervical disc disorder with myelopathy, mid-cervical region, unspecified level; M54.6 Pain in thoracic spine; M48.061 Spinal stenosis, lumbar region without neurogenic claudication; M54.16 Radiculopathy, lumbar region; M48.00 Spinal stenosis, site unspecified; M54.9 Dorsalgia, unspecified; Z79.891 Long term (current) use of opiate analgesic | CPT/HCPCS: 99214 ==

== ENCOUNTER → 2020-04-15 13:24 | Outpatient (BNVA) | payer MEDICAID, SELFPAY | PROVIDERS: Family Provider Nurse Practitioner Family; PCP Family Medicine; Visit Provider Podiatrist Foot & Ankle Surgery | DX: M79.673 Pain in unspecified foot (principal); M21.611 Bunion of right foot | CPT/HCPCS: 73630 ==

== ENCOUNTER → 2020-05-15 10:34 | Outpatient (BNVA) | payer MEDICAID, SELFPAY | PROVIDERS: Family Provider Nurse Practitioner Family; PCP Family Medicine; Visit Provider Anesthesiology | DX: G89.29 Other chronic pain (principal); M50.020 Cervical disc disorder with myelopathy, mid-cervical region, unspecified level; M54.16 Radiculopathy, lumbar region; M54.6 Pain in thoracic spine; M48.061 Spinal stenosis, lumbar region without neurogenic claudication; Z98.890 Other specified postprocedural states; Z79.891 Long term (current) use of opiate analgesic | CPT/HCPCS: 99214 ==

== ENCOUNTER → 2020-06-01 13:20 | Outpatient (BNVA) | payer MEDICAID, SELFPAY | PROVIDERS: Family Provider Nurse Practitioner Family; PCP Family Medicine; Visit Provider Nurse Practitioner Family | DX: R35.0 Frequency of micturition (principal); R35.8 Other polyuria; R39.9 Unspecified symptoms and signs involving the genitourinary system | CPT/HCPCS: 81003 ==

== ENCOUNTER 2020-07-17 08:46 | Outpatient (CLI) | payer MEDICAID, SELFPAY ==
--- NOTE | 2020-07-17 08:45 | US_ITS ---
WS: [id number] ULTRASOUND RENAL TECHNIQUE: Ultrasound examination of both kidneys. CLINICAL INFORMATION: LOWER URINARY TRACT SYMPTOMS COMPARISON: None. FINDINGS: RIGHT: Right kidney is normal in size and appearance. Echogenicity: Normal. Cortical thickness: 2.0 cm; Normal. Hydronephrosis: None. Perinephric fluid: None. Right kidney measures: 11.8 cm x 7.2 cm x 5.4 cm. LEFT: Left kidney is normal in size and appearance. Echogenicity: Normal. Cortical thickness: 1.3 cm; Normal. Hydronephrosis: None. Perinephric fluid: None. Left kidney measures: 11.0 cm x 5.9 cm x 5.0 cm. Normal visualized aorta. US/US renal BI* [id number] IMPRESSION: 1. Normal renal ultrasound. 2. Patient voided just prior to examination with mild post void residual.
== END 2020-07-17 08:47 | disposition home or self-care (01) ==
PROVIDERS: PCP Family Medicine; Visit Provider Urology
DX: R39.9 Unspecified symptoms and signs involving the genitourinary system (principal)
CPT/HCPCS: 76770; 81003

== ENCOUNTER → 2020-07-24 10:48 | Outpatient (BNVA) | payer MEDICAID, SELFPAY | PROVIDERS: PCP Family Medicine; Visit Provider Anesthesiology | DX: G89.29 Other chronic pain (principal); M54.16 Radiculopathy, lumbar region; M48.061 Spinal stenosis, lumbar region without neurogenic claudication; M50.020 Cervical disc disorder with myelopathy, mid-cervical region, unspecified level; M54.6 Pain in thoracic spine; M54.9 Dorsalgia, unspecified; Z98.890 Other specified postprocedural states; Z79.891 Long term (current) use of opiate analgesic | CPT/HCPCS: 99214 ==

== ENCOUNTER → 2020-09-24 10:59 | Outpatient (BNVA) | payer MEDICAID, SELFPAY | PROVIDERS: PCP Family Medicine; Visit Provider Anesthesiology | DX: G89.29 Other chronic pain (principal); M50.020 Cervical disc disorder with myelopathy, mid-cervical region, unspecified level; M54.16 Radiculopathy, lumbar region; M48.061 Spinal stenosis, lumbar region without neurogenic claudication; Z79.891 Long term (current) use of opiate analgesic; Z98.890 Other specified postprocedural states | CPT/HCPCS: 99214 ==

== ENCOUNTER → 2020-11-20 11:12 | Outpatient (BNVA) | payer MEDICAID, SELFPAY | PROVIDERS: PCP Family Medicine; Visit Provider Nurse Practitioner | DX: G89.29 Other chronic pain (principal); M54.6 Pain in thoracic spine; M48.061 Spinal stenosis, lumbar region without neurogenic claudication; M54.16 Radiculopathy, lumbar region; M25.561 Pain in right knee; M25.562 Pain in left knee; M50.020 Cervical disc disorder with myelopathy, mid-cervical region, unspecified level; Z98.890 Other specified postprocedural states; Z79.891 Long term (current) use of opiate analgesic | CPT/HCPCS: 99213 ==

== ENCOUNTER → 2021-01-26 14:08 | Outpatient (BNVA) | payer MEDICAID, SELFPAY | PROVIDERS: PCP Family Medicine; Visit Provider Anesthesiology | DX: G89.29 Other chronic pain (principal); M48.061 Spinal stenosis, lumbar region without neurogenic claudication; M54.16 Radiculopathy, lumbar region; M54.6 Pain in thoracic spine; M54.12 Radiculopathy, cervical region; M50.020 Cervical disc disorder with myelopathy, mid-cervical region, unspecified level; Z98.890 Other specified postprocedural states; Z79.891 Long term (current) use of opiate analgesic | CPT/HCPCS: 99214 ==

== ENCOUNTER → 2021-03-25 10:08 | Outpatient (BNVA) | payer MEDICAID, SELFPAY | PROVIDERS: PCP Family Medicine; Visit Provider Anesthesiology | DX: G89.29 Other chronic pain (principal); M54.6 Pain in thoracic spine; M48.061 Spinal stenosis, lumbar region without neurogenic claudication; M54.16 Radiculopathy, lumbar region; M50.020 Cervical disc disorder with myelopathy, mid-cervical region, unspecified level; Z98.890 Other specified postprocedural states; Z79.891 Long term (current) use of opiate analgesic; M25.50 Pain in unspecified joint | CPT/HCPCS: 99214 ==

== ENCOUNTER → 2021-11-05 09:51 | Outpatient (BNVA) | payer MEDICARE, MEDICAID, SELFPAY | PROVIDERS: PCP Family Medicine; Visit Provider Otolaryngology | DX: H93.13 Tinnitus, bilateral (principal); H91.93 Unspecified hearing loss, bilateral; M26.622 Arthralgia of left temporomandibular joint; M35.00 Sjogren syndrome, unspecified | CPT/HCPCS: 99203; 99204 ==

== ENCOUNTER → 2021-11-10 14:36 | Outpatient (BNVA) | payer MEDICARE, SELFPAY | PROVIDERS: PCP Family Medicine; Visit Provider Nurse Practitioner Family | DX: N39.0 Urinary tract infection, site not specified (principal); N41.0 Acute prostatitis | CPT/HCPCS: 81000 ==

== ENCOUNTER → 2021-12-21 10:53 | Outpatient (BNVA) | payer MEDICARE, MEDICAID, SELFPAY | PROVIDERS: PCP Family Medicine; Visit Provider Physician Assistant | DX: M51.24 Other intervertebral disc displacement, thoracic region (principal); M43.16 Spondylolisthesis, lumbar region; M25.511 Pain in right shoulder; M25.512 Pain in left shoulder; Z98.1 Arthrodesis status | CPT/HCPCS: 72050; 72072; 72110; 99205 ==

== ENCOUNTER → 2022-01-10 15:46 | Outpatient (BNVA) | payer MEDICARE, MEDICAID, OTHER, SELFPAY | PROVIDERS: PCP Family Medicine; Visit Provider Nurse Practitioner Family | DX: M25.511 Pain in right shoulder (principal); M25.512 Pain in left shoulder; G89.29 Other chronic pain | CPT/HCPCS: 73030; 99214 ==

== ENCOUNTER → 2022-01-17 15:18 | Outpatient (BNVA) | payer MEDICARE, MEDICAID, SELFPAY | PROVIDERS: PCP Family Medicine; Visit Provider Nurse Practitioner Family | DX: M25.561 Pain in right knee (principal); M25.562 Pain in left knee; G89.29 Other chronic pain; M94.261 Chondromalacia, right knee | CPT/HCPCS: 73560; 73565; 99214 ==

== ENCOUNTER → 2022-01-27 13:34 | Outpatient (BNVA) | payer MEDICARE, MEDICAID, SELFPAY | PROVIDERS: PCP Family Medicine; Visit Provider Urology | DX: R39.9 Unspecified symptoms and signs involving the genitourinary system (principal); N41.9 Inflammatory disease of prostate, unspecified | CPT/HCPCS: 51741; 51798; 81003; 99213 ==

== ENCOUNTER 2022-03-04 08:44 | Outpatient (CLI) | payer MEDICARE, MEDICAID, SELFPAY ==
--- NOTE | 2022-03-04 09:30 | MR_ITS ---
WS: [id number] MRI LEFT SHOULDER HISTORY: Pain and decreased range of motion for 8 years. COMPARISON: Shoulder radiograph 01/10/2022 TECHNIQUE: Multiplanar sequences of the shoulder joint are submitted. Mild AC joint arthritis. Very minimal encroachment upon the supraspinatus muscle. 5 mm osteophyte dinesh ng the distal undersurface of the acromion with only minimal subacromial impingement. There is a smal l amount of fluid in the subdeltoid bursa. No os acromion. Normal position of the biceps tendon. Moderate fraying along both the bursal and articular surfaces of the distal supraspinatus tendon. Add itional 5 mm insertion site tear involving the posterior supraspinatus tendon near the interdigitatio n with the infraspinatus tendon. There is fluid tracking along the supraspinatus tendon consistent wi th an interstitial tear and extension. No muscle atrophy or edema. Small amount of edema and subchondral cyst in the posterior lateral humer al head. Increased T2 signal in the superior and posterior labrum. There is increased signal noted on the T2 and proton density sequences. MR/MR shoulder LT wo con* [id number] IMPRESSION: 1. Insertion site tear supraspinatus tendon with interstitial extension. 2. Mild tendon fraying involving the bursal and articular surfaces of the dist al supraspinatus tendon. 3. Mild AC joint arthritis. 4. Mild subacromial impingement. 5. Focal tear involving the superior to posterior labrum.
== END 2022-03-04 08:45 | disposition home or self-care (01) ==
LOC: RAD 08:45
PROVIDERS: PCP Family Medicine; Visit Provider Nurse Practitioner Family
DX: M25.512 Pain in left shoulder (principal); M13.812 Other specified arthritis, left shoulder; M25.511 Pain in right shoulder
CPT/HCPCS: 73221

== ENCOUNTER 2022-03-04 08:44 | Outpatient (CLI) | payer MEDICARE, MEDICAID, SELFPAY ==
--- NOTE | 2022-03-04 08:45 | MR_ITS ---
WS: [id number] MRI RIGHT KNEE HISTORY: Pain and swelling for 8 years. COMPARISON: 10/15/2018 Anterior cruciate ligament: Intact. Posterior cruciate ligament: Intact. Medial collateral ligament: Again noted is a small amount of increased signal in the intrasubstance p ortion of the proximal MCL. Not changed or progressed since the prior examination. No adjacent fluid or edema. Posterior lateral corner structures: Intact. Medial menisci: Intact. Normal signal, size and shape. Lateral meniscus: Intact. Normal signal, size and shape. Extensor mechanism: Distal quadriceps tendon and patellar tendons are intact. Fluid and soft tissue: Small suprapatellar joint effusion. No Fong's cyst. Osseous and articular structures: Patellofemoral compartment: Mild thinning of articular cartilage over the medial patellar facet with progression since the prior study. No full-thickness defect. There is a very small amount of marrow e tarsha in the inferior patella. New finding since the prior study. Medial compartment: 4 mm defect weightbearing surface medial femoral condyle. Mild chondromalacia. No marrow edema. There is additional intermediate signal extending from the surface of the cartilage to wards the cortical surface. Suspect this is probably an area of delamination involving the cartilage of the medial femoral condyle. Lateral compartment: Negative. MR/MR knee RT wo con* [id number] IMPRESSION: 1. No meniscal tear. 2. Normal ACL. 3. Small amount of marrow edema along the inferior patella that was not presen t on the prior study. The adjacent patellar tendon appears normal. 4. Very small suprapatellar joint effusion. 5. Suspect area of cartilage delamination involving the medial weightbearing s urface of the femoral condyle. Similar to the prior study with mild progression .
== END 2022-03-04 08:45 | disposition home or self-care (01) ==
LOC: RAD 08:45
PROVIDERS: PCP Family Medicine; Visit Provider Nurse Practitioner Family
DX: M94.261 Chondromalacia, right knee (principal); M25.561 Pain in right knee; M25.461 Effusion, right knee
CPT/HCPCS: 73721

== ENCOUNTER 2022-03-04 08:45 | Outpatient (CLI) | payer MEDICARE, MEDICAID, SELFPAY ==
--- NOTE | 2022-03-04 09:22 | MR_ITS ---
WS: [id number] MRI RIGHT SHOULDER HISTORY: shoulder pain, chronic pain with decreased range of motion for years. COMPARISON: 11/08/2017 TECHNIQUE: Multiplanar sequences of the shoulder joint are submitted. Mild AC joint arthritis encroaching upon the supraspinatus tendon near the myotendinous insertion. AC joint is narrowed with small hypertrophic osteophytes. Small amount of fluid in the subdeltoid bursa . There is also mild fraying along the bursal surface of the distal supraspinatus tendon. No os acrom ion. Biceps tendon in normal position in the bicipital groove. 4 mm osteophyte distal undersurface of acromion with subacromial impingement. Moderate subchondral cystic changes involving the posterior humeral head. Insertion site tear suprasp inatus tendon with no retraction. No atrophy or edema. The remaining rotator cuff muscles are normal. Slightly high riding humeral head. Small osteochondral defect in the glenoid. Fraying along the sagrario cular surface of the superior labrum but no definite tear is identified. MR/MR shoulder RT wo con* [id number] IMPRESSION: 1. New small insertion site tear supraspinatus tendon. 2. No rotator cuff muscle edema or atrophy. 3. Mild AC joint arthritis. 4. Mild subacromial impingement by a small osteophyte. 5. Mild fraying along the bursal surface of the supraspinatus, distal. 6. Small osteochondral defect in the glenoid.
== END 2022-03-04 08:46 | disposition home or self-care (01) ==
LOC: RAD 08:45
PROVIDERS: PCP Family Medicine; Visit Provider Nurse Practitioner Family
DX: M25.511 Pain in right shoulder (principal); M25.512 Pain in left shoulder
CPT/HCPCS: 73221

== ENCOUNTER 2022-03-07 07:06 | Outpatient (CLI) | payer MEDICARE, MEDICAID, SELFPAY ==
--- NOTE | 2022-03-07 | USCV_ITS ---
Jean-Pierre Maldonado Age: 46 Gender: M : 1975 Exam Date: 03/07/2022 07:20 Ordering Phys: Rubén Cullen XX Technologist: Urvashi Bernard [place] [facility] [place]: Syncope SOB BP: 110 / 70 HR: 71 Rhythm: Sinus Technical Quality: Adequate MEASUREMENTS (Male / Female) Normal Values 2D ECHO LV Diastolic Diameter PLAX 4.4 cm 4.2 - 5.9 / 3.9 - 5.3 cm LV Systolic Diameter PLAX 2.6 cm LV Chamber Size 4.7 cm IVS Diastolic Thickness 1.1 cm 0.6 - 1.0 / 0.6 - 0.9 cm IVS Systolic Thickness 1.4 cm LVPW Diastolic Thickness 1.3 cm 0.6 - 1.0 / 0.6 - 0.9 cm LVPW Systolic Thickness 1.8 cm RV Chamber Size 2.4 cm LVOT Diameter 2.0 cm LV Ejection Fraction 2D Teich 71.4 % LV Ejection Fraction MOD 2C 62.6 % LV Ejection Fraction 2C AL 64.0 % LA Diameter 2.2 cm LA Width 3.0 cm LA Height 2.9 cm RA Width 4.3 cm RA Height 4.4 cm Aorta at Sinotubular Diameter 2.5 cm IVC Diameter 1.4 cm M-MODE Aortic Annulus Diameter 2.8 cm LA Ao Ratio MM 0.8 MV E Point Septal Separation 0.8 cm DOPPLER AV Peak Velocity 128.0 cm/s LVOT Peak Velocity 97.0 cm/s AV Area Cont Eq vti 2.6 cm squared AV Area Cont Eq pk 2.4 cm squared MV Area PHT 3.6 cm squared Mitral E to A Ratio 1.3 MV E' Velocity 45.5 cm/s Mitral E to MV E' Ratio 4.8 Mitral E to LV E' Lateral Ratio 3.8 Mitral E to LV E' Septal Ratio 6.7 TR Peak Velocity 156.7 cm/s TR Peak Gradient 9.8 mmHg TR Mean Velocity 132.7 cm/s TR Mean Gradient 7.4 mmHg TR Velocity Time Integral 39.4 cm TV Peak E Velocity 46.0 cm/s Right Atrial Pressure 3.0 mmHg Pulmonary Artery Systolic Pressu 12.8 mmHg RV Acceleration Time 0.2 s RV Ejection Time 0.3 s RV AcT/ET 0.5 FINDINGS Left Ventricle Left ventricle is normal in size. LV systolic function is normal with EF of 50-55%. No regional wall motion abnormalities. Dastolic function is normal. False tendon is seen in the left ventricle Right Ventricle Normal in size and function Right Atrium Normal in size Left Atrium Normal in size Mitral Valve Structurally normal mitral valve. Trace mitral regurgitation Aortic Valve Grossly normal. No significant stenosis or regurgitation. Tricuspid Valve Mild tricuspid regurgitation. Insufficient TR jet to calculate RVSP Pulmonic Valve Not well visualized Pericardium Normal Aorta Normal in size IVC Appears to be normal CONCLUSIONS LV systolic function is normal with EF 50 to 55%. Diastolic function is normal False tendon is seen in left ventricle. Trace mitral regurgitation Mild tricuspid regurgitation No comparison studies are available Nilesh Bruno MD (Electronically Signed) Final Date: 08 March 2022 14:56 S
== END 2022-03-07 07:07 | disposition home or self-care (01) ==
LOC: RAD 07:06
PROVIDERS: PCP Family Medicine; Visit Provider Family Medicine
DX: R55 Syncope and collapse (principal)
CPT/HCPCS: 93306

== ENCOUNTER → 2022-03-09 11:16 | Outpatient (BNVA) | payer MEDICARE, MEDICAID, SELFPAY | PROVIDERS: PCP Family Medicine; Visit Provider Nurse Practitioner Family | DX: M25.512 Pain in left shoulder (principal); M25.511 Pain in right shoulder; G89.29 Other chronic pain | CPT/HCPCS: 99213 ==

== ENCOUNTER → 2022-04-11 12:35 | Outpatient (BNVA) | payer MEDICARE, MEDICAID, SELFPAY | PROVIDERS: PCP Family Medicine; Visit Provider Internal Medicine | DX: R06.09 Other forms of dyspnea (principal); E78.5 Hyperlipidemia, unspecified; R55 Syncope and collapse; R07.9 Chest pain, unspecified; R06.02 Shortness of breath | CPT/HCPCS: 99204 ==

== ENCOUNTER 2022-05-02 12:25 | Outpatient (CLI) | payer MEDICARE, MEDICAID, SELFPAY ==
--- NOTE | 2022-05-02 | ECG_ITS ---
[facility] Test Date: 2022-05-02 Pat Name: Jean-Pierre Maldonado Department: Room: Gender: Male Manager Poker: : 1975 Requested By: Nilesh Bruno Order Number: [id number] Thacker MD: Nilesh Bruno M.D. Interpretive Statements NAME OF STUDY: TREADMILL STRESS TEST INDICATION: [Chest Pain] EXERCISE DATA: The patient was exercised by Darin protocol. Baseline heart rate was 92 beats per minute. Baseline blood pressure was 119/76 millimeters of mercury. Target heart rate was 147 beats per minute. Maximum heart rate achieved was 175 which was 119% of the target heart rate. Maximum blood pressure was 149/83 millimeters of mercury. Total exercise time was 14 minutes and 6 seconds. Maximum METs achieved was 17.2. The reason for ending the test was completion of the protocol. The patient complained of shortness of breath during the stress test, which then resolved at the end of the test. ELECTROCARDIOGRAM: BASELINE: Showed sinus rhythm, normal axis, no significant ST-T changes at the baseline noted. [] EXERCISE: At the peak exercise level, [] No significant ST-T changes suggestive of ischemia noted. [] RECOVERY: During the recovery period, heart rate dropped appropriately. No significant ST-T changes in the recovery suggestive of ischemia noted. [] CONCLUSION: 1. Exercise capacity excellent 2. Heart rate response was appropriate 3. Blood pressure response was appropriate 4. Symptoms not suggestive of ischemia. 5. Stress test does not suggest ischemia.. Electronically Signed On 05-09-2022 11:43:53 [employer] CHECK[employer] by Nilesh Bruno M.D. [id number]
[2022-05-02 12:48] VITALS: BMI 22.1
[2022-05-02 14:04] VITALS: BP 150/65; PULSE 82
== END 2022-05-02 12:26 | disposition home or self-care (01) ==
LOC: CDL 12:29
PROVIDERS: PCP Family Medicine; Visit Provider Internal Medicine
DX: R07.9 Chest pain, unspecified (principal)
CPT/HCPCS: 93017

== ENCOUNTER 2022-05-12 09:18 | Outpatient (CLI) | payer MEDICARE, MEDICAID, SELFPAY | END 2022-05-12 09:19 | disposition home or self-care (01) | PROVIDERS: PCP Family Medicine; Visit Provider Internal Medicine | DX: R06.02 Shortness of breath (principal) | CPT/HCPCS: 94060; 94726; 94729; 99204; J7613 ==

== ENCOUNTER → 2022-06-09 11:43 | Outpatient (BNVA) | payer MEDICARE, MEDICAID, SELFPAY | PROVIDERS: PCP Internal Medicine; Visit Provider Internal Medicine Pulmonary Disease | DX: R06.09 Other forms of dyspnea (principal) | CPT/HCPCS: 71046; 99204 ==

== ENCOUNTER 2022-06-24 08:47 | Outpatient (CLI) | payer MEDICARE, MEDICAID, SELFPAY ==
--- NOTE | 2022-06-24 08:30 | FL_ITS ---
WS: [id number] Exam: FL sniff test [id number] Date/Time of Exam: 06/24/2022 9:06 AM Reason For Exam: Shortness of breath. Sniff test was performed with fluoroscopic visualization. The diaphragms demonstrate normal motion in both inhalation and expiration . Sniff test revealed no diaphragmatic paralysis or abnormal motion. FL/FL sniff test [id number] IMPRESSION: 1. Negative sniff test. The diaphragms move in a normal fashion in inspiration and expiration.
== END 2022-06-24 08:48 | disposition home or self-care (01) ==
LOC: RAD 08:53
PROVIDERS: PCP Internal Medicine; Visit Provider Internal Medicine Pulmonary Disease
DX: Q79.1 Other congenital malformations of diaphragm (principal); R06.02 Shortness of breath
CPT/HCPCS: 76000

== ENCOUNTER → 2024-06-24 11:19 | Outpatient (BNVA) | payer MEDICARE, SELFPAY | PROVIDERS: PCP Internal Medicine; Visit Provider Nurse Practitioner | DX: M19.012 Primary osteoarthritis, left shoulder (principal); M75.112 Incomplete rotator cuff tear or rupture of left shoulder, not specified as traumatic; M25.812 Other specified joint disorders, left shoulder; M25.511 Pain in right shoulder; G89.29 Other chronic pain | CPT/HCPCS: 99204 ==

== ENCOUNTER 2024-07-17 11:52 | Outpatient (CLI) | payer MEDICARE, SELFPAY ==
[2024-07-17 12:19] LABS: Bilirubin Urine Negative (Negative); Blood Urine Negative (Negative); Glucose Urine UA Negative (Normal); Ketones Urine Negative (Negative); Leukocyte Esterase Urine Negative (Negative); Nitrate Urine Negative (Negative); Protein Urine Negative (Negative); Specific Gravity, Urine 1.026 (1.005-1.030); Urine Appearance Clear (CLEAR); Urine Color Dark Yellow (Yellow); pH Urine 6.5 (5-7)
[2024-07-17 12:24] LABS: Add Urine Microscopic? YES; Bacteria Urine None Seen /hpf; Hyaline Casts Urine 20.67 /lpf; RBC Urine 0-2 /hpf (0-2); Squamous Epithelial Cell Urine 0-5 /hpf (0-5); WBC Urine 0-5 /hpf (0-5)
[2024-07-17 13:38] LABS: Add Urine Culture? No; Calcium Oxalate Crystals Urine 0-4 /hpf; UA Slide Review UA Slide Review Perf
== END 2024-07-17 11:53 | disposition home or self-care (01) ==
PROVIDERS: PCP Internal Medicine; Visit Provider Nurse Practitioner
DX: M25.511 Pain in right shoulder (principal); M25.512 Pain in left shoulder; G89.29 Other chronic pain
CPT/HCPCS: 81001

== ENCOUNTER 2024-08-22 08:37 | Day surgery (SDC) | payer MEDICARE, SELFPAY ==
[2024-08-22] VITALS (16 sets, daily range): BP systolic 113–159; BP diastolic 72–93; PULSE 63–92; RESP 16–22; TEMP 36.1–36.8; O2SAT 98–100; BMI 22.1
[2024-08-22] MEDS: sodium chloride 0.9% 1,000 ML 30 ML IV (09:22)
[2024-08-22] MEDS: acetaminophen 1,000 MG/100 ML PIGGYBACK 400 MG IV (09:33)
[2024-08-22] MEDS: CELEcoxib 200 mg Capsule 400 MG PO (09:37)
--- NOTE | 2024-08-22 09:37 | P.ANESASSM_ITS ---
Pre-Anesthetic Assessment Height/Weight: Height 1.88 m Weight 78.018 kg O2 Del Method Room Air 08/22/24 08:54 Operation Date: 08/22/24 10:10 Proposed Procedures p Rotator Cuff Repair - Open(Left) - Qing Reid MD s Acromioplasty(Left) - Qing Reid MD s Distal Clavicle Resection(Left) - MD madelin Torres Debridement Upper Extremity(Left) - Qing Reid MD Familial anesthetic complications: None Was Beta Tico taken within 24 hours: N/A Was Clonidine taken within 24 hours: N/A Last intake: Intake Last Liquid Date 08/21/24 Last Liquid Time 19:00 Last Solid Date 08/21/24 Last Solid Time 13:00 Social No alcohol and No tobacco Exam alert, oriented x 3, clear to auscultation bilaterally and regular rate & rhythm Airway Mallampati: Class I Dentition: full Neuropsych Anxiety Anesthetic Plan ASA status: 1 Anesthesia: General and Regional (specify below) Other: Patient declined block, does not want to be awake for placement of it Risk of > 500 ml blood loss (7ml/kg in children): No Medications/Allergies Home Medications ?Medication ?Instructions ?Recorded ?Confirmed ?Last Taken ?Type loteprednol etabonate 0.5 % eye 1 drp ophthalmic (eye) BEDTIME PRN 09/24/19 08/21/24 Unknown History gel drops (Lotemax) UNKNOWN oxycodone 10 mg tablet 10 mg PO QID PRN pain 30 day s #120 03/25/21 08/21/24 08/21/24 Rx tabs fentanyl 25 mcg/hr transdermal 1 patch transdermal Q72 H 30 days 05/06/21 08/21/24 08/21/24 Rx patch #10 ea ezetimibe 10 mg tablet 10 mg PO DAILY 08/21/24 05/11/1808/21/24 History Allergies Allergy/AdvReac Type Severity Reaction Status Date / Time No Known Drug Allergies Allergy Unknown Verified 08/21/24 09:28 Current Medications Generic Name Dose Route Start Last Admin Trade Name Freq PRN Reason Stop Dose Admin Sodium Chloride 1,000 mls @ 30 mls/hr 08/22/24 09:15 08/22/24 09:22 Sodium Chloride 0.9% IV 08/23/24 09:14 30 mls/hr .Q24H YINA Administration PFSH Anesthesia Medical History Arthritis of left acromioclavicular joint Impingement of left shoulder Right testicular pain OCD (obsessive compulsive disorder) Lower urinary tract symptoms (LUTS) Opioid contract exists Encounter for long-term use of opiate analgesic Cervical disc disorder with myelopathy of mid-cervical region Chronic thoracic back pain Dorsalgia, unspecified Beat, premature ventricular Insomnia, unspecified Male erectile dysfunction, unspecified Atrial premature beats Blind right eye Cervical spinal stenosis Generalized anxiety disorder Chondromalacia Diplopia ADHD Chondromalacia of patella Chronic pain associated with significant psychosocial dysfunction Hyperlipidemia, unspecified Incomplete rotator cuff tear Peroneal tendinitis of multiple sites Chronic GERD Spinal stenosis, site unspecified Exostosis of foot Acquired bilateral hammer toes Impingement syndrome of right shoulder Arthritis of right acromioclavicular joint Chronic fatigue, unspecified Common migraine with intractable migraine, so stated Cervical radicular pain Gilmore's neuroma of left foot Bunion of right foot Spinal stenosis of lumbar region with radiculopathy Acute midline thoracic back pain Fibromyalgia, primary Cervical disc disorder with radiculopathy of mid-cervical region Surgical History H/O lumbosacral spine surgery H/O cervical spine surgery Hx of fusion of cervical spine Joseph Blakely C4-T1 01/08/20 History of nasal surgery Family History Father Cancer BRAIN Mother Cancer LUNG Lung disease Social History Smoking and tobacco/nicotine status: never used tobacco/nicotine Second hand smoke exposure: No Alcohol intake: current Alcohol intake frequency: few times a month Alcohol type: wine Substance/Drug Use: never Marital status: Current occupational status: disabled Data Anesthesia Cardiac Studies: Echocardiogram 03/07/22 Cardiac Event Monitor 04/11/22
--- NOTE | 2024-08-22 09:47 | W.PM.OPSUD ---
Surgery/Procedure H&P Update DATE OF PROCEDURE: August 22, 2024 DATE H&P PERFORMED: 08/06/24 PRIMARY INDICATION FOR PROCEDURE: MRI LEFT SHOULDER IMPRESSION: 1. Insertion site tear supraspinatus tendon with interstitial extension. 2. Mild tendon fraying involving the bursal and articular surfaces of the distal supraspinatus tendon. 3. Mild AC joint arthritis. 4. Mild subacromial impingement. 5. Focal tear involving the superior to posterior labrum. PLANNED PROCEDURE: Operation Date: 08/22/24 10:10 Proposed Procedures p Rotator Cuff Repair - Open(Left) - Qing Reid MD s Acromioplasty(Left) - MD madelin Torres Distal Clavicle Resection(Left) - Qing Reid MD s Debridement Upper Extremity(Left) - Qing Reid MD Related Problem List Diagnoses (1) Incomplete rotator cuff tear: Qualifiers: Laterality: left Rotator cuff tear trauma status: nontraumatic Qualified Code(s): M75.112 - Incomplete rotator cuff tear or rupture of left shoulder, not specified as traumatic (2) Arthritis of left acromioclavicular joint: (3) Impingement of left shoulder:
[2024-08-22] MEDS: ceFAZolin 2,000 mg SDV 2000 MG IVP (10:16)
[2024-08-22] MEDS: BUPivacaine-epi 0.5% 10 ML INJ 30 ML XX (11:30)
[2024-08-22] MEDS: ceFAZolin 1,000 mg SDV 1000 MG IRRIGATION (11:30)
--- NOTE | 2024-08-22 12:21 | PM.OP ---
Operative Report Date of procedure: August 22, 2024 Pre-op diagnosis: Left shoulder impingement, osteoarthritis acromioclavicular joint, and incomplete rotator cuff tear Post-op diagnosis: Left shoulder impingement, osteoarthritis acromioclavicular joint, incomplete rotator cuff tear, and bursitis Post-op findings: As noted under postop diagnosis. There was significant inflammation of the bursa with thickening. There is irregularity of the bursal surface of the rotator cuff consistent with impingement, but there was no through and through rotator cuff tear. There was no palpable thinning of the rotator cuff. Impingement was noted to be significant. Procedure done: Left shoulder acromioplasty with debridement of rotator cuff, distal clavicle resection, and bursectomy Implants: None Specimens removed/disposition: None Pathology: None Surgeon: Qing Reid MD Vascular Technologist Sonographer: Jordana Alvarez NP, who services were required for positioning, retraction, closure, and completion of the surgical procedure Anesthesia: General (Intubated, ASA 1) Estimated blood loss (mL): 20 IV fluids (mL): 1,200 Urine output (mL): 0 (No Gill) Complications: None Findings: As noted above Condition: stable Disposition: PACU (And return to same-day surgery for discharge to home) Brief History: This 49-year-old gentleman presented with complaints of severe bilateral shoulder pain. He was seen by Jordana Alvarez, nurse practitioner, in the office, and at that time, he complained primarily of left shoulder pain. Since that time, he has developed significant right shoulder pain, but plans are to proceed with left shoulder surgery as previously discussed. Approximately 2 years ago, the patient was scheduled to undergo surgical intervention, however, he needed multiple other procedures including to his cervical spine. He also had some family issues which precluded him from proceeding at that time. A new MRI was obtained at [facility] and was compared with previous imaging. There was very little interim change. After the discussion in the office. The patient wished to proceed with operative intervention. Risks and complications were discussed with him. Consents were signed and questions were answered. Procedure: The patient was brought to the operating theater and underwent general intubated anesthesia, ASA 4. The patient was placed in a beachchair position and subsequently the left upper extremity was prepped and draped in the usual fashion utilizing DuraPrep. The arm was draped free. A surgical pause was performed prior to commencement of the surgical procedure. At the time of the surgical pause, we confirmed the site and side of surgery as well as administration of appropriate preoperative antibiotics Ancef 2 g. MRI was also reviewed at that time. Following the surgical pause, an incision was made at approximately the level of the acromioclavicular joint extending across the anterolateral corner of the acromion and distally as necessary. Care was taken to avoid injury to the axillary nerve by limiting the distal extent of the incision. Dissection continued through skin and soft tissues using a scalpel. Hemostasis was obtained using electrocautery. Soft tissues were elevated off the acromion. An acromioplasty was then accomplished using a combination of a saw and a power rasp. With this, we were able to remove compression caused by the acromion. Prior to this, there was noted to be significant compression across the subacromial space. The bursa was noted to be quite thickened and hyperemic consistent with impingement and reactive change. The rotator cuff was then evaluated to look for tears. There was noted to be irregularity to the upper surface of the rotator cuff. No thinning was palpable. Bursectomy was accomplished without difficulty. The acromioclavicular joint was exposed. A saw was then used to resect the distal clavicle without difficulty. The undersurface of the clavicle was palpated and was slightly further debrided. A power rasp was used to further smooth the area. When this was felt to be adequately resected, the wound was irrigated. Attention was then directed to closure. The wound was irrigated and closure was accomplished with 0 Vicryl in the capsular tissues overlying the acromioclavicular joint area as well as over the acromion and down into the deltoid muscle. 3-0 Monocryl was used to close the subcutaneous tissues followed by 4-0 Monocryl subcuticular closure. This was followed by Dermabond, Steri-Strips, and OpSite. The patient was placed in a sling and was returned to the recovery room in satisfactory condition. The patient will be discharged to home to follow-up with me in the office as scheduled. There were no complications and no specimens. Related Problem List Diagnoses (1) Incomplete rotator cuff tear: (2) Impingement of left shoulder: (3) Arthritis of left acromioclavicular joint: (4) Bursitis of left shoulder:
[2024-08-22] MEDS: fentaNYL 50 mcg/mL INJ 2mL IVP ×2 (12:29→12:43)
[2024-08-22] MEDS: oxyCODONE-APAP 10-325 mg Tablet 1 TAB PO (13:43)
--- NOTE | 2024-08-22 14:07 | SUR.PHASEII ---
Pt refused prescribed Hydrocodone, stating it won't help at all, I may have to increase the mg of my oxycodone, prescribed by pain management. This nurse encouraged pt to speak with his pain management doctor regarding surgery and pain medication, pt voiced understanding.
--- NOTE | 2024-08-22 14:10 | ANE.PACU2 ---
Inpatient post-anesthesia follow up: Airway intact: Yes Vital signs: Temperature 98.2 F Pulse Rate 64 Respiratory Rate 18 Blood Pressure 129/86 Pulse Oximetry 100 Oxygen Delivery Me thod Room Air Oxygen Flow Rate 6 Fraction of Inspir ed Oxygen Hydration adequate: Yes Nausea and vomiting: No Pain level: 1 Mental status: Baseline
== END 2024-08-22 14:10 | disposition home or self-care (01) ==
PROVIDERS: PCP Internal Medicine; Visit Provider Specialist
PROC: (CPT 29824; principal; 2024-08-22 10:10)
PROC: (CPT 23130; 2024-08-22 10:10)
PROC: (CPT 23120; 2024-08-22 10:10)
PROC: (CPT 29824; 2024-08-22 10:10)
DX: M19.012 Primary osteoarthritis, left shoulder (principal); M25.812 Other specified joint disorders, left shoulder; M75.112 Incomplete rotator cuff tear or rupture of left shoulder, not specified as traumatic; M75.52 Bursitis of left shoulder; F41.9 Anxiety disorder, unspecified; E78.5 Hyperlipidemia, unspecified; K21.9 Gastro-esophageal reflux disease without esophagitis; M79.7 Fibromyalgia; J45.909 Unspecified asthma, uncomplicated
CPT/HCPCS: 29824; 23130; J0131; J0690; J1100; J2371; J2405; J2704; J2710; J2795; J3010; J3490; J7030; J9999

== ENCOUNTER → 2024-09-04 14:09 | Outpatient (BNVA) | payer MEDICARE, SELFPAY | PROVIDERS: PCP Internal Medicine; Visit Provider Specialist | DX: M75.41 Impingement syndrome of right shoulder (principal); M19.011 Primary osteoarthritis, right shoulder; Z98.890 Other specified postprocedural states | CPT/HCPCS: 99214 ==

== ENCOUNTER 2024-10-17 08:44 | Day surgery (SDC) | payer MEDICARE, SELFPAY ==
[2024-10-17] VITALS (10 sets, daily range): BP systolic 90–118; BP diastolic 57–81; PULSE 54–88; RESP 13–22; TEMP 36.1–36.6; O2SAT 95–100; BMI 20.1
--- NOTE | 2024-10-17 09:03 | P.ANESASSM_ITS ---
Pre-Anesthetic Assessment Height/Weight: Height 1.88 m Weight 71.214 kg Preop Diagnosis: Right Shoulder Pain Operation Date: 10/17/24 10:15 Proposed Procedures p RIGHT OPEN Shoulder Acromioplasty(Right) - Qing Reid MD s RIGHT Distal Clavicle Resection(Right) - Qing Reid MD s RIGHT Shoulder Debridement(Right) - Qing Reid MD Familial anesthetic complications: none Was Beta Tico taken within 24 hours: N/A Was Clonidine taken within 24 hours: N/A Social No alcohol and No tobacco Exam alert, oriented x 3, clear to auscultation bilaterally and regular rate & rhythm Airway Submandibular: within normal limits Cervical ROM: within normal limits Mallampati: Class II Dentition: full History/ROS No significant history except as noted and No significant complaints Pulmonary None reported CV/HEM None reported None reported Hepatic None reported GI None reported Metabolic None reported Musc/skel Lower Back Pain and Osteoarthritis/DJD Neuropsych None reported Anesthetic Plan ASA status: 2 Anesthesia: General and Regional (specify below) (Interscalene Block) Risk of > 500 ml blood loss (7ml/kg in children): No Medications/Allergies Home Medications ?Medication ?Instructions ?Recorded ?Confirmed ?Last Taken ?Type loteprednol etabonate 0.5 % eye 1 drp ophthalmic (eye) BEDTIME PRN 09/24/19 10/16/24 10/15/24 History gel drops (Lotemax) UNKNOWN oxycodone 10 mg tablet 10 mg PO QID PRN pain 30 day s #120 03/25/21 10/16/24 10/16/24 Rx tabs fentanyl 25 mcg/hr transdermal 1 patch transdermal Q72 H 30 days 05/06/21 10/16/24 10/16/24 Rx patch #10 ea ezetimibe 10 mg tablet 10 mg PO DAILY 08/21/24 07/06/1810/16/24 History Allergies Allergy/AdvReac Type Severity Reaction Status Date / Time No Known Drug Allergies Allergy Unknown Verified 09/04/24 14:42 [facility] Anesthesia Medical History Arthritis of left acromioclavicular joint Impingement of left shoulder Right testicular pain OCD (obsessive compulsive disorder) Lower urinary tract symptoms (LUTS) Opioid contract exists Encounter for long-term use of opiate analgesic Cervical disc disorder with myelopathy of mid-cervical region Chronic thoracic back pain Dorsalgia, unspecified Beat, premature ventricular Insomnia, unspecified Male erectile dysfunction, unspecified Atrial premature beats Blind right eye Cervical spinal stenosis Generalized anxiety disorder Chondromalacia Diplopia ADHD Chondromalacia of patella Chronic pain associated with significant psychosocial dysfunction Hyperlipidemia, unspecified Incomplete rotator cuff tear Peroneal tendinitis of multiple sites Chronic GERD Spinal stenosis, site unspecified Exostosis of foot Acquired bilateral hammer toes Impingement syndrome of right shoulder Arthritis of right acromioclavicular joint Chronic fatigue, unspecified Common migraine with intractable migraine, so stated Cervical radicular pain Gilmore's neuroma of left foot Bunion of right foot Spinal stenosis of lumbar region with radiculopathy Acute midline thoracic back pain Fibromyalgia, primary Cervical disc disorder with radiculopathy of mid-cervical region Surgical History H/O lumbosacral spine surgery H/O cervical spine surgery Hx of fusion of cervical spine Joseph Blakely C4-T1 01/08/20 History of nasal surgery Family History Father Cancer BRAIN Mother Cancer LUNG Lung disease Social History Smoking and tobacco/nicotine status: never used tobacco/nicotine Second hand smoke exposure: No Alcohol intake: current Alcohol intake frequency: few times a month Alcohol type: wine Substance/Drug Use: never Marital status: Current occupational status: disabled Data Anesthesia Cardiac Studies: Echocardiogram 03/07/22 Cardiac Event Monitor 04/11/22
--- NOTE | 2024-10-17 09:20 | W.PM.OPSFHP ---
Same Day Surgery H&P Indication for Procedure/HPI DATE OF PROCEDURE: October 17, 2024 CHIEF COMPLAINT/INDICATIONFOR SURGICAL PROCEDURE: Right shoulder impingement syndrome PREOP DIAGNOSIS: Right Shoulder Pain PLANNED PROCEDURE: Operation Date: 10/17/24 10:15 Proposed Procedures p RIGHT OPEN Shoulder Acromioplasty(Right) - Qing Reid MD s RIGHT Distal Clavicle Resection(Right) - MD madelin Torres RIGHT Shoulder Debridement(Right) - Qing Reid MD Medications/Allergies* Home Medications ?Medication ?Instructions ?Recorded ?Confirmed ?Type loteprednol etabonate 0.5 % eye 1 drp ophthalmic (eye) BEDTIME PRN 09/24/19 10/16/24 History gel drops (Lotemax) UNKNOWN ezetimibe 10 mg tablet 10 mg PO DAILY 08/21/24 10/16/24 History Allergies/Adverse Reactions Allergy/AdvReac Type Severity Reaction Status Date / Time No Known Drug Allergies Allergy Unknown Verified 09/04/24 14:42 Pertinent History/Comorbid Conditions* Medical History (Updated 08/23/24 @ 00:00 by SOURAV Sullivan) Arthritis of left acromioclavicular joint Impingement of left shoulder Right testicular pain OCD (obsessive compulsive disorder) Lower urinary tract symptoms (LUTS) Opioid contract exists Encounter for long-term use of opiate analgesic Cervical disc disorder with myelopathy of mid-cervical region Chronic thoracic back pain Dorsalgia, unspecified Beat, premature ventricular Insomnia, unspecified Male erectile dysfunction, unspecified Atrial premature beats Blind right eye Cervical spinal stenosis Generalized anxiety disorder Chondromalacia Diplopia ADHD Chondromalacia of patella Chronic pain associated with significant psychosocial dysfunction Hyperlipidemia, unspecified Incomplete rotator cuff tear Peroneal tendinitis of multiple sites Chronic GERD Spinal stenosis, site unspecified Exostosis of foot Acquired bilateral hammer toes Impingement syndrome of right shoulder Arthritis of right acromioclavicular joint Chronic fatigue, unspecified Common migraine with intractable migraine, so stated Cervical radicular pain Gilmore's neuroma of left foot Bunion of right foot Spinal stenosis of lumbar region with radiculopathy Acute midline thoracic back pain Fibromyalgia, primary Cervical disc disorder with radiculopathy of mid-cervical region Surgical History (Updated 08/23/24 @ 00:00 by SOURAV Sullivan) H/O lumbosacral spine surgery H/O cervical spine surgery Hx of fusion of cervical spine Joseph Blakely C4-T1 01/08/20 History of nasal surgery Family History (Updated 01/27/22 @ 13:51 by Michelle Peraza LPN) Father Lung disease Mother Cancer Father BRAIN Mother LUNG Social History Smoking and tobacco/nicotine status: never used tobacco/nicotine Second hand smoke exposure: No Alcohol intake: current Alcohol intake frequency: few times a month Alcohol type: wine Substance/Drug Use: never Marital status: Current occupational status: disabled Pertinent Exam Findings alert, oriented x 3, clear to auscultation bilaterally, regular rate & rhythm, operative site marked and procedure specific exam findings (Pain with range of motion and palpation consistent with impingement) Pertinent Data MRI of the RIGHT shoulder without contrast was obtained on June 10, 2024 at [facility]. Impression right shoulder: 1. Mild to moderate rotator cuff tendinopathy with small intermediate grade partial-thickness articular surface tear of the infraspinatus. 2 No high-grade or retracted rotator cuff tear. 3. Mild subacromial/subdeltoid bursitis. 4. Mild intra-articular biceps neuropathy without tear. 5. Mild acromioclavicular osteoarthritis. Related Problem List Diagnoses 1. Impingement syndrome of right shoulder: 2. Arthritis of right acromioclavicular joint: Recommendations Risks and benefits of procedure reviewed and Patient/family agree to proceed Surgery/Procedure today Coding Level of Care Code Acute Code for [facility] Fwd Diagnoses Impingement syndrome of right shoulder M75.41 Arthritis of right acromioclavicular joint M19.011
[2024-10-17] MEDS: acetaminophen 1,000 MG/100 ML PIGGYBACK 400 MG IV (09:31)
[2024-10-17] MEDS: ceFAZolin 2,000 mg SDV 2000 MG IVP (09:38)
--- NOTE | 2024-10-17 10:01 | ANES.PROC ---
Anesthesia Procedures Procedure/Date: 10/17/24 Procedure Narrative: Patient stated deathly afraid of needles. ISB done under sedation in OR suite. Nerve Block ^: Nerve Block 1: Main Anesthesia: general anesthesia Time Out Performed: Yes Consent: requested by attending/covering physician, from patient, risks and benefits reviewed and patient agrees to proceed Nerve block location: interscalene Anesthesia monitors applied: pulse oximetry, EKG, BP cuff and oxygen Nerve block position: semi sitting Anesthetic Used: ropivicaine 0.5% Amount of anesthesia used (mL): 20 Ultrasound used to: recognize landmarks, visualize and ID brachial plexus and visualize and ID interscalene groove Nerve Stimulator Used?: Yes Interscalene/Femoral BLK: 4 stimuplex 21 g needle used for position and inplane approach, visualize local anesthetic spread and no vascular puncture identified Injection: neg aspiration of heme Patient Tolerated Procedure: well and no complications Complications: none
[2024-10-17] MEDS: ceFAZolin 1,000 mg SDV 1000 MG IRRIGATION (10:37)
--- NOTE | 2024-10-17 11:38 | PM.OP ---
Operative Report Date of procedure: October 17, 2024 Pre-op diagnosis: Right shoulder impingement, osteoarthritis acromioclavicular joint, and possible rotator cuff tear Post-op diagnosis: Right shoulder impingement, osteoarthritis of the acromioclavicular joint, and bursitis Post-op findings: No evidence of rotator cuff tear, but there was significant degenerative osteoarthritis within the acromioclavicular joint. Distal clavicle was expanded and pushing on the rotator cuff. Inflammation of the rotator cuff secondary to impingement. Procedure done: Right open acromioplasty with distal clavicle resection and bursectomy Implants: None Specimens removed/disposition: None Pathology: None Surgeon: Qing Reid MD Electronic Technician: [facility] operating room technicians Anesthesia: General (Intubated, ASA 2 with preoperative regional block) Estimated blood loss (mL): 20 IV fluids (mL): 900 Urine output (mL): 0 (No Gill) Complications: None Findings: Inflammation of the rotator cuff consistent with impingement, bursitis also consistent with impingement. Significant acromioclavicular joint osteoarthritis with impingement upon the rotator cuff. Very tight subacromial space. Condition: stable Disposition: PACU (Then return to same-day surgery for discharge to home) Brief History: This 49-year-old gentleman previously underwent left shoulder surgery in July of this year. He had similar symptoms to the right shoulder, and he wished to proceed with the above listed surgery as he has done well following his surgery to his opposite shoulder. Patient had symptoms consistent with impingement and rotator cuff tendinopathy. After discussion in the office, he was scheduled for the above procedure. Risks and complications were discussed with him. Consents were signed and questions were answered. Procedure: The patient was brought to the operating theater and underwent general intubated anesthesia, ASA 2. The patient was placed in a beachchair position and subsequently the right upper extremity was prepped and draped in the usual fashion utilizing DuraPrep. The arm was draped free. A surgical pause was performed prior to commencement of the surgical procedure. At the time of the surgical pause, we confirmed the site and side of surgery as well as administration of appropriate preoperative antibiotics Ancef 2 g. MRI was also reviewed at that time. Following the surgical pause, an incision was made at approximately the level of the acromioclavicular joint extending across the anterolateral corner of the acromion and distally as necessary. Care was taken to avoid injury to the axillary nerve by limiting the distal extent of the incision. Dissection continued through skin and soft tissues using a scalpel. Hemostasis was obtained using electrocautery. Soft tissues were elevated off the acromion as well as the acromioclavicular joint. The acromioclavicular joint was exposed. A saw was then used to resect the distal clavicle without difficulty. The undersurface of the clavicle was palpated and was slightly further debrided. A power rasp was used to further smooth the area. When this was felt to be adequately resected, the wound was irrigated. An acromioplasty was then accomplished using a combination of a saw and a power rasp. With this, we were able to remove compression caused by the acromion. Prior to this, there was noted to be significant compression across the subacromial space. The bursa was noted to be quite thickened and hyperemic consistent with impingement and reactive change. The rotator cuff was then evaluated to look for tears. There was no evidence of rotator cuff tear no thinning was palpable. Bursectomy was accomplished without difficulty. The wound was irrigated. Attention was then directed to closure. The wound was irrigated and closure was accomplished with 0 Vicryl in the capsular tissues overlying the acromioclavicular joint area as well as over the acromion and down into the deltoid muscle. 3-0 Monocryl was used to close the subcutaneous tissues followed by 4-0 Monocryl subcuticular closure. This was followed by Dermabond, Steri-Strips, and OpSite. The patient was placed in a sling and was returned to the recovery room in satisfactory condition. The patient will be discharged to home to follow-up with me in the office as scheduled. There were no complications and no specimens. Related Problem List Diagnoses 1. Impingement syndrome of right shoulder: 2. Arthritis of right acromioclavicular joint: 3. Bursitis of right shoulder:
== END 2024-10-17 12:30 | disposition home or self-care (01) ==
PROVIDERS: PCP Internal Medicine; Visit Provider Specialist
PROC: (CPT 23130; principal; 2024-10-17 10:05)
PROC: (CPT 23120; 2024-10-17 10:05)
PROC: (CPT 23130; 2024-10-17 10:05)
DX: M75.41 Impingement syndrome of right shoulder (principal); M19.011 Primary osteoarthritis, right shoulder; M71.9 Bursopathy, unspecified; K21.9 Gastro-esophageal reflux disease without esophagitis; F41.9 Anxiety disorder, unspecified; E78.5 Hyperlipidemia, unspecified; M79.7 Fibromyalgia
CPT/HCPCS: 23130; 23120; J0131; J0690; J1100; J2250; J2405; J2704; J2795; J3010; J3490; J7030; J9999

== ENCOUNTER → 2024-11-20 11:11 | Outpatient (BNVA) | payer MEDICARE, SELFPAY | PROVIDERS: PCP Internal Medicine; Visit Provider Specialist | DX: M25.561 Pain in right knee (principal); M25.562 Pain in left knee; M25.361 Other instability, right knee | CPT/HCPCS: 73560; 73565; 99214 ==

== ENCOUNTER 2024-12-04 10:20 | Outpatient (CLI) | payer MEDICARE, SELFPAY ==
--- NOTE | 2024-12-04 10:15 | MR_ITS ---
WS: [id number] MRI RIGHT KNEE HISTORY: right knee pain COMPARISON: 03/04/2022 Anterior cruciate ligament: Intact. Posterior cruciate ligament: Intact. Medial collateral ligament: Mild thinning involving the mid deep portion of the MCL. Similar to prior studies consistent with a chronic incomplete tear. Posterior lateral corner structures: Intact. Medial menisci: Intact. Normal signal, size and shape. Lateral meniscus: Intact. Normal signal, size and shape. Extensor mechanism: Distal quadriceps tendon and patellar tendons are intact. Fluid and soft tissue: No joint effusion. No Fong's cyst. Osseous and articular structures: Patellofemoral compartment: Minimal thinning of the cartilage over the medial patellar facet. No underlying marrow edema. Small osteophyte or osseous fragment along the inferior patellar surface with previously described. No edema. Medial compartment: Mild narrowing of the medial compartment. No marrow edema. Mild thinning and fissuring of the cartilage. Lateral compartment: Negative. No marrow edema or fractures. MR/MR knee RT wo con* [id number] IMPRESSION: 1. No ACL or meniscal tear. 2. Mild thinning deep portion MCL consistent with various small remote tear wh ich is unchanged. 3. Mild chondromalacia medial patellar facet. No underlying marrow edema. 4. Mild narrowing of the medial compartment with mild diffuse chondromalacia.
== END 2024-12-04 10:21 | disposition home or self-care (01) ==
LOC: RAD 10:21
PROVIDERS: PCP Internal Medicine; Visit Provider Specialist
DX: M25.561 Pain in right knee (principal)
CPT/HCPCS: 73721

== ENCOUNTER → 2024-12-11 10:02 | Outpatient (BNVA) | payer MEDICARE, SELFPAY | PROVIDERS: PCP Internal Medicine; Visit Provider Specialist | DX: M25.361 Other instability, right knee (principal); M19.90 Unspecified osteoarthritis, unspecified site | CPT/HCPCS: 99214 ==

== ENCOUNTER → 2025-02-05 15:11 | Outpatient (BNVA) | payer MEDICARE, SELFPAY | PROVIDERS: PCP Internal Medicine; Visit Provider Specialist | DX: M75.51 Bursitis of right shoulder (principal) | CPT/HCPCS: 73030; 99214 ==

== ENCOUNTER 2025-02-14 08:51 | Outpatient (CLI) | payer MEDICARE, SELFPAY ==
--- NOTE | 2025-02-14 08:45 | MR_ITS ---
WS: [id number] MRI RIGHT SHOULDER HISTORY: Postop RIGHT shoulder. Acromioplasty. Surgery on 10/17/2024. COMPARISON: 03/04/2022, radiograph 02/05/2025 TECHNIQUE: Multiplanar sequences of the shoulder joint are submitted. Status post RIGHT acromioplasty. Resection of the distal clavicle. No significant marrow edema is identified. There is some fluid within the subacromial and subdeltoid bursa. No subacromial impingement. No os acromion. Normal position of the biceps tendon in the bicipital groove. Mild narrowing of the glenohumeral joint Numerous subchondral cystic changes are present in the posterior lateral humeral head. No fracture. Tendinopathy noted in the distal supraspinatus tendon. There is also a small segment insertion site tear of the supraspinatus. There is fluid in the subscapularis recess. No muscle edema or atrophy. Increased T2 signal in the rotator cuff interval. Biceps tendon through the rotator cuff interval is mildly thickened and there is a subtle area of increased T2 signal within the biceps tendon at the interval. There is mild thickening of the overlying coracohumeral ligament. Abnormal increased T2 signal extends into the superior labrum. Thickening of the superior glenohumeral ligament. MR/MR shoulder RT wo con* [id number] IMPRESSION: 1. Status post RIGHT acromioplasty. 2. Rotator cuff interval injury. Mild thickening of the distal long head of th e biceps tendon through the rotator cuff interval with an interstitial tear. In creased T2 signal extends into the rotator cuff interval and the superior labru m although no definite tear noted within the superior labrum. Mild thickening o f the coracohumeral ligament. The superior glenohumeral ligament is enlarged an d edematous. 3. Insertion site tear of supraspinatus tendon with more proximal tendinopathy .
== END 2025-02-14 08:52 | disposition home or self-care (01) ==
PROVIDERS: PCP Internal Medicine; Visit Provider Specialist
DX: M25.511 Pain in right shoulder (principal); Z98.890 Other specified postprocedural states; S46.111A Strain of muscle, fascia and tendon of long head of biceps, right arm, initial encounter; X58.XXXA Exposure to other specified factors, initial encounter; M24.211 Disorder of ligament, right shoulder
CPT/HCPCS: 73221

== ENCOUNTER → 2025-02-24 11:05 | Outpatient (BNVA) | payer MEDICARE, SELFPAY | PROVIDERS: PCP Internal Medicine; Visit Provider Specialist | DX: M19.011 Primary osteoarthritis, right shoulder (principal); M75.81 Other shoulder lesions, right shoulder | CPT/HCPCS: 99214 ==